=== PATIENT | female | born 1980 | race Caucasian/White ===

== ENCOUNTER 2016-12-09 12:21 | Emergency (ER) | payer MEDICAID ==
[~2016-12-09] VITALS: Ht 139.7 cm; Wt 102.0 kg
[~2016-12-09 12:21] MED LIST: CETI10CH CHEW; FLUT50SP EACH NARE; LEVE500T8 PO; LEVO150T7 PO; PROT40TA PO; TOPI1TAB31 PO
[2016-12-09] MEDS ORDERED: FISHCAP4 PO (12:28)
[2016-12-09 12:29] VITALS: BP 135/78; PULSE 103; RESP 20; TEMP 98.7; O2SAT 91
[2016-12-09 12:45] LABS: AUTOMATED NEUTROPHIL # 10.4 TH/MM3 (1.8-7.7); BASOPHIL # 0.2 TH/MM3 (0-0.2); BASOPHIL % 1.5 % (0.0-2.0); EOSINOPHIL # 0.2 TH/MM3 (0-0.4); EOSINOPHIL % 1.6 % (0.0-4.0); HEMATOCRIT 38.1 % (35.0-46.0); LYMPH % 6.9 % (9.0-44.0); LYMPHOCYTE # 0.9 TH/MM3 (1.0-4.8); MEAN CELL VOLUME 88.9 FL (80.0-100.0); MEAN CORPUSCULAR HEMOGLOBIN 29.9 PG (27.0-34.0); MEAN CORPUSCULAR HGB CONC 33.6 % (32.0-36.0); MONO % 5.4 % (0.0-8.0); NEUT % 84.6 % (16.0-70.0); PLATELET COUNT 234 TH/MM3 (150-450); RED BLOOD COUNT 4.29 MIL/MM3 (4.00-5.30); WHITE BLOOD COUNT 12.4 TH/MM3 (4.0-11.0)
[2016-12-09] MEDS ORDERED: RESP: ALBUTEROL 2.5 MG/IPRATROPIUM 0.5 MG NEB (SCH) INH ONE (12:45)
[2016-12-09 12:46] LABS: HEMO FLAGS DIFF FINAL
[2016-12-09 12:51] VITALS: O2SAT 97
--- NOTE | 2016-12-09 12:51 | PD ---
HPI Chief Complaint: Respiratory Symptoms Time Seen by Provider: 12:35 Travel History International Travel<30 days: No Contact w/Intl Traveler<30days: No Traveled to known affect area: No History of Present Illness HPI 36yo F with PMH of Down syndrome, ASD repair, sleep apnea presents to the ED with c/o few days of sob, cough and intermittent chest pain. Pt's mother states she noticed she is wheezing today. Pt has oxygen at home but only use at night because of sleep apnea and she was not able to tolerate CPAP. Pt has not use oxygen in 6 months. +Nasal congestion. Pt also with right sided headache now. Denies any fever, n/v, abdominal pain, focal weakness or numbness. PFSH Past Medical History Cardiac Catheterization: Yes (1984) Cardiovascular Problems: Yes (ASD repair ) Chest Pain: Yes Congestive Heart Failure: Yes Developmental Delay: Yes (DOWNS SYNDROME) Diminished Hearing: No Gastrointestinal Disorders: Yes (DYSPHAGIA, ABDOMINAL PAIN) GERD: Yes Genitourinary: Yes (endometriosis) Headaches: Yes Insomnia: Yes Neurologic: Yes (DOWN SYNDRONE,SEIZURES) Immunizations Current: Yes Pneumonia: Yes (PLEURISY) Seizures: Yes Sleep Apnea: Yes (O2 3L/NC AT NIGHT PRN) Thyroid Disease: Yes Tetanus Vaccination: < 5 Years Influenza Vaccination: Yes ?: Not : 0 Past Surgical History Cardiac Surgery: Yes (asd repair) Tonsillectomy: Yes Tympanostomy Tube: Yes (tympanic surgery) Other Surgery: Yes Social History Alcohol Use: No Tobacco Use: No Substance Use: No Allergies-Medications (Allergen,Severity, Reaction): Coded Allergies: Pineapple (Verified Allergy, Severe, "Stops breathing", 12/09/16) Demerol (Verified Adverse Reaction, Severe, Anxiety, 12/09/16) Reported Meds & Prescriptions Reported Meds & Active Scripts Active Ventolin Hfa 18 GM Inh (Albuterol Sulfate) 90 Mcg/Act Aer 2 Puff INH Q4H PRN Reported Fish Oil + D3 (Fish Oil-Cholecalciferol) 1,200-1,000 Mg-Unit Cap 1 Cap PO DAILY Fluticasone Nasal [place] 50 Mcg/Act Naspr 50 Mcg EACH NARE BID 50 mcg/spray Topiramate 100 Mg Tab 100 Mg PO BID Protonix (Pantoprazole Sodium) 40 Mg Tab 40 Mg PO DAILY Levothyroxine (Levothyroxine Sodium) 150 Mcg Tab 175 Mcg PO DAILY Levetiracetam 500 Mg Tab 500 Mg PO BID Cetirizine (Cetirizine HCl) 10 Mg Chew 10 Mg CHEW DAILY Review of Systems Except as stated in HPI: all other systems reviewed are Neg Physical Exam Narrative GENERAL: 36yo F in moderate distress. SKIN: Focused skin assessment warm/dry. HEAD: Atraumatic. Normocephalic. EYES: Pupils equal and round. No scleral icterus. No injection or drainage. ENT: No nasal bleeding or discharge. Mucous membranes pink and moist. NECK: Trachea midline. No JVD. CARDIOVASCULAR: Regular rate and rhythm. No murmur appreciated. RESPIRATORY: + accessory muscle use. Coarse expiratory sound in bilateral lower lungs. Mild inspiratory wheezing on right lower lung. GASTROINTESTINAL: Abdomen soft, non-tender, nondistended. Hepatic and splenic margins not palpable. MUSCULOSKELETAL: No obvious deformities. No clubbing. No cyanosis. No edema. NEUROLOGICAL: Awake and alert. No obvious cranial nerve deficits. Motor grossly within normal limits. Normal speech. PSYCHIATRIC: Appropriate mood and affect; insight and judgment normal. Data Data Last Documented VS Vital Signs Date Time Temp Pulse Resp B/P Pulse Ox O2 Delivery O2 Flow Rate FiO2 12/09/16 16:37 108 20 138/81 95 12/09/16 14:16 99.9 Nasal Cannula 2 Orders Complete Blood Count With Diff (12/09/16 12:27) Basic Metabolic Panel (Bmp) (12/09/16 12:27) Chest, Single Ap (12/09/16 ) Lactic Acid Sepsis Protocol (12/09/16 12:44) Ckmb (Isoenzyme) Profile (12/09/16 12:44) Troponin I (12/09/16 12:44) Albuterol-Ipratropium Neb (Duoneb Neb) (12/09/16 12:45) Electrocardiogram (12/09/16 ) Sodium Chloride 0.9% Flush (Ns Flush) (12/09/16 14:15) Sodium Chloride 0.9% Flush (Ns Flush) (12/09/16 21:00) Acetaminophen (Tylenol) (12/09/16 14:15) Ondansetron Inj (Zofran Inj) (12/09/16 14:15) Resp Oxygen Denilson C Titrat 1-4 L (12/09/16 ) Heparin Inj (Heparin Inj) (12/09/16 15:00) Naloxone Inj (Narcan Inj) (12/09/16 14:15) Docusate Sodium-Senna (Denise-Colace) (12/09/16 21:00) Magnesium Hydroxide Liq (Milk Of Magnesi (12/09/16 14:15) Sennosides (Senokot) (12/09/16 14:15) Bisacodyl Supp (Dulcolax Supp) (12/09/16 14:15) Lactulose Liq (Lactulose Liq) (12/09/16 14:15) Inpatient Certification (12/09/16 ) Ceftriaxone Inj (Rocephin Inj) (12/09/16 15:00) Azithromycin Inj (Zithromax Inj) (12/09/16 14:15) Ed Poc Ultrasound (12/09/16 ) Ct Pulmonary Angiogram (12/09/16 ) Bhcg Screen Qualitative (12/09/16 14:39) Albuterol-Ipratropium Neb (Duoneb Neb) (12/09/16 15:15) Iohexol 350 Inj (Omnipaque 350 Inj) (12/09/16 15:43) Labs Laboratory Tests Test 12/09/16 12/09/16 12:30 12:54 White Blood Count 12.4 TH/MM3 Red Blood Count 4.29 MIL/MM3 Hemoglobin 12.8 GM/DL Hematocrit 38.1 % Mean Corpuscular Volume 88.9 FL Mean Corpuscular Hemoglobin 29.9 PG Mean Corpuscular Hemoglobin 33.6 % Concent Red Cell Distribution Width 14.0 % Platelet Count 234 TH/MM3 Mean Platelet Volume 7.2 FL Neutrophils (%) (Auto) 84.6 % Lymphocytes (%) (Auto) 6.9 % Monocytes (%) (Auto) 5.4 % Eosinophils (%) (Auto) 1.6 % Basophils (%) (Auto) 1.5 % Neutrophils # (Auto) 10.4 TH/MM3 Lymphocytes # (Auto) 0.9 TH/MM3 Monocytes # (Auto) 0.7 TH/MM3 Eosinophils # (Auto) 0.2 TH/MM3 Basophils # (Auto) 0.2 TH/MM3 CBC Comment DIFF FINAL Differential Comment Sodium Level 137 MEQ/L Potassium Level 3.6 MEQ/L Chloride Level 105 MEQ/L Carbon Dioxide Level 23.4 MEQ/L Anion Gap 9 MEQ/L Blood Urea Nitrogen 9 MG/DL Creatinine 0.77 MG/DL Estimat Glomerular Filtration 86 ML/MIN Rate Random Glucose 118 MG/DL Calcium Level 8.3 MG/DL Lactic Acid Level 0.8 mmol/L Total Creatine Kinase 35 U/L Troponin I LESS THAN 0.02 NG/ML Beta HCG, Qualitative LESS THAN 1 MIU/ML MDM Medical Decision Making Medical Screen Exam Complete: Yes Emergency Medical Condition: Yes Interpretation(s) EKG: NSR 98bpm. LAD. TWI V2. Laboratory Tests Test 12/09/16 12/09/16 12:30 12:54 White Blood Count 12.4 TH/MM3 (4.0-11.0) Red Blood Count 4.29 MIL/MM3 (4.00-5.30) Hemoglobin 12.8 GM/DL (11.6-15.3) Hematocrit 38.1 % (35.0-46.0) Mean Corpuscular Volume 88.9 FL (80.0-100.0) Mean Corpuscular Hemoglobin 29.9 PG (27.0-34.0) Mean Corpuscular Hemoglobin 33.6 % Concent (32.0-36.0) Red Cell Distribution Width 14.0 % (11.6-17.2) Platelet Count 234 TH/MM3 (150-450) Mean Platelet Volume 7.2 FL (7.0-11.0) Neutrophils (%) (Auto) 84.6 % (16.0-70.0) Lymphocytes (%) (Auto) 6.9 % (9.0-44.0) Monocytes (%) (Auto) 5.4 % (0.0-8.0) Eosinophils (%) (Auto) 1.6 % (0.0-4.0) Basophils (%) (Auto) 1.5 % (0.0-2.0) Neutrophils # (Auto) 10.4 TH/MM3 (1.8-7.7) Lymphocytes # (Auto) 0.9 TH/MM3 (1.0-4.8) Monocytes # (Auto) 0.7 TH/MM3 (0-0.9) Eosinophils # (Auto) 0.2 TH/MM3 (0-0.4) Basophils # (Auto) 0.2 TH/MM3 (0-0.2) CBC Comment DIFF FINAL Differential Comment Sodium Level 137 MEQ/L (136-145) Potassium Level 3.6 MEQ/L (3.5-5.1) Chloride Level 105 MEQ/L (98-107) Carbon Dioxide Level 23.4 MEQ/L (21.0-32.0) Anion Gap 9 MEQ/L (5-15) Blood Urea Nitrogen 9 MG/DL (7-18) Creatinine 0.77 MG/DL (0.50-1.00) Estimat Glomerular Filtration 86 ML/MIN (>89) Rate Random Glucose 118 MG/DL (74-106) Calcium Level 8.3 MG/DL (8.5-10.1) Lactic Acid Level 0.8 mmol/L (0.4-2.0) Total Creatine Kinase 35 U/L (26-192) Troponin I LESS THAN 0.02 NG/ML (0.02-0.05) Beta HCG, Qualitative LESS THAN 1 MIU/ML (0-5) Last Impressions Chest X-Ray 12/09/16 0000 Signed Impressions: Service Date/Time: Friday, December 09, 2016 13:23 - CONCLUSION: No acute cardiopulmonary abnormality is identified. Lei Malave MD CT Angiography 12/09/16 0000 Signed Impressions: Service Date/Time: Friday, December 09, 2016 15:20 - CONCLUSION: 1. No evidence of pulmonary embolism. 2. Cardiomegaly. 3. Posterior bibasilar atelectasis. 4. Hepatosplenomegaly. 5. Degenerative changes and mild scoliosis of the thoracic spine. Alejandro Short MD Differential Diagnosis Pneumonia vs. reactive airway disease vs. bronchitis vs. pericarditis vs. PE Narrative Course 36yo F with down syndrome here with sob. Pt was hypoxic at 88% on RA and placed on 3L NC and saturating at 95-96%. Pt has oxygen at home. Labs reviewed , mild leukocytosis at 12.4. Lactic acid 0.8. Troponin negative. CXR showed no acute cardiopulmonary abnormality. Pt has no history of asthma or COPD but has very mild wheezing in right lung on exam so gave a duoneb. Pt reevaluated at bedside and states that did help so I will give another duoneb. I am concern about PE so ultrasound was used to place [address] angio. CT angio showed no evidence of PE. Posterior bibasilar atelectasis. Pt 's saturation improves when she sits up to 95-96%. Pt feels better and wants to go home. Mother has oxygen at home. Headache has resolved. Speaking in complete sentences and not in distress. Return precautions given. Procedures Procedure Narrative Ultrasound guided peripheral IV placed in right antecubital region. Diagnosis Primary Impression: Reactive airway disease Qualified Code: J45.901 - Reactive airway disease, unspecified asthma severity , with acute exacerbation Patient Instructions: General Instructions Departure Forms: Tests/Procedures Additional Instructions: Please follow up with your PMD in 1-2 days. Return to the ED if symptoms worsen. Med/Other Pt SpecificInfo: Prescription(s) given Scripts Albuterol 18 GM Inh (Ventolin Hfa 18 GM Inh)90 Mcg/Act Aer2 Puff INH Q4H PRN ( SHORTNESS OF BREATH) #1 INHALER Ref 0 Prov:Alissa Simpson DO 12/09/16 Disposition: 01 DISCHARGE HOME Condition: Stable Alissa Simpson DO December 09, 2016 12:51
[2016-12-09 12:53] LABS: POTASSIUM 3.6 MEQ/L (3.5-5.1)
[2016-12-09 12:58] LABS: BICARBONATE 23.4 MEQ/L (21.0-32.0)
--- NOTE | 2016-12-09 13:36 | RADHPO ---
EXAM DATE/TIME: 12/09/2016 13:23 [facility] COMPARISON: CHEST SINGLE AP, November 23, 2013, 8:11. INDICATIONS : Shortness of breath. MEDICAL HISTORY : SURGICAL HISTORY : ASD repair open heart 1985 ENCOUNTER: Initial ACUITY: 1 day PAIN SCORE: 0/10 LOCATION: FINDINGS: Portable AP view of the chest demonstrates a normal-sized cardiac silhouette. Lungs are underinflated with atelectasis at the right lung base. No effusion, consolidation, or pneumothorax is visualized. Bones and soft tissues demonstrate no acute finding. CONCLUSION: No acute cardiopulmonary abnormality is identified. Lei Malave MD on December 09, 2016 at 13:33 Board Certified Radiologist. This report was verified electronically.
[2016-12-09 13:43] LABS: CREATINE KINASE 35 U/L (26-192)
[2016-12-09] MEDS ORDERED: SODIUM CHLORIDE 0.9% FLUSH 10 ML FLUSH IV FLUSH PRN (14:15)
[2016-12-09] MEDS ORDERED: ACETAMINOPHEN 325 MG TAB PO PRN (14:15)
[2016-12-09] MEDS ORDERED: AZITHROMYCIN INJ 500 MG in SODIUM CHLOR 0.9% 250 ML INJ 250 ML IV SCH (14:15)
[2016-12-09] MEDS ORDERED: LACTULOSE SYRUP 20 GM/30 ML CUP PO PRN (14:15)
[2016-12-09] MEDS ORDERED: BISACODYL 10 MG SUPP RECTAL PRN (14:15)
[2016-12-09] MEDS ORDERED: ONDANSETRON HCL 4 MG/2 ML VIAL IVP PRN (14:15)
[2016-12-09] MEDS ORDERED: SENNOSIDES 8.6 MG TAB PO PRN (14:15)
[2016-12-09] MEDS ORDERED: NALOXONE HCL 0.4 MG/ML AMP IV PRN (14:15)
[2016-12-09] MEDS ORDERED: MAGNESIUM HYDROXIDE SUSP 30 ML CUP PO PRN (14:15)
[2016-12-09 14:16] VITALS: BP 124/75; PULSE 103; RESP 18; TEMP 99.9; O2SAT 93
[2016-12-09] MEDS ORDERED: cefTRIAXone INJ 1,000 MG in SODIUM CHLORIDE 0.9% INJ 100 ML IV SCH (15:00)
[2016-12-09] MEDS ORDERED: HEPARIN SODIUM - SQ 10,000 UNITS/ML VIAL SQ SCH (15:00)
[2016-12-09] MEDS ORDERED: RESP: ALBUTEROL 2.5 MG/IPRATROPIUM 0.5 MG NEB (SCH) NEB ONE (15:15)
[2016-12-09] MEDS ORDERED: IOHEXOL 350 MG/ML 10 ML VIAL (for RAD DIAG) IV ONE (15:43)
--- NOTE | 2016-12-09 15:52 | RADHPO ---
EXAM DATE/TIME: 12/09/2016 15:20 [facility] COMPARISON: No previous studies available for comparison. INDICATIONS : Cough with shortness of breath and chest pain IV CONTRAST: 70 cc Omnipaque 350 (iohexol) IV RADIATION DOSE: 21.57 CTDIvol (mGy) MEDICAL HISTORY : Congestive hearrt failure. Cardiovascular disease Downs syndrome. SURGICAL HISTORY : ASD repair. ENCOUNTER: Initial ACUITY: 3 days PAIN SCALE: 2/10 LOCATION: chest TECHNIQUE: Volumetric scanning of the chest was performed using a pulmonary embolism protocol MIP images were re constructed. Using automated exposure control and adjustment of the mA and/or kV according to patien t size, radiation dose was kept as low as reasonably achievable to obtain optimal diagnostic quality images. FINDINGS: PULMONARY ARTERIES: No filling defects are seen in the pulmonary arteries through the segmental level. LUNGS: Posterior bibasilar atelectasis is noted. There is no consolidation or pneumothorax . No concerning pulmonary nodule is visualized. PLEURAE: There is no pleural thickening or pleural effusion. MEDIASTINUM: There is good visualization of the great vessels of the middle mediastinum. No evidence of mediastin al or hilar adenopathy/mass. Cardiomegaly is noted. MUSCULOSKELETAL: Degenerative changes and mild scoliosis of the thoracic spine is noted. MISCELLANEOUS: The visualized upper abdominal organs demonstrate no acute abnormality. Hepatosplenomegaly is noted. CONCLUSION: 1. No evidence of pulmonary embolism. 2. Cardiomegaly. 3. Posterior bibasilar atelectasis. 4. Hepatosplenomegaly. 5. Degenerative changes and mild scoliosis of the thoracic spine. Alejandro Short MD on December 09, 2016 at 15:48 Board Certified Radiologist. This report was verified electronically.
[2016-12-09] MEDS ORDERED: VENTAER INH (16:27)
[2016-12-09 16:37] VITALS: BP 138/81
[2016-12-09] MEDS ORDERED: SODIUM CHLORIDE 0.9% FLUSH 10 ML FLUSH IV FLUSH SCH (21:00)
[2016-12-09] MEDS ORDERED: DOCUSATE SODIUM 50 MG/SENNA 8.6 MG TAB PO SCH (21:00)
--- NOTE | 2016-12-10 08:25 | EKG ---
Date Performed: 12/09/2016 Time Performed: 12:59:00 PTAGE: 36 years EKG: Sinus rhythm Left axis deviation Ant/septal and lateral ST-T changes are nonspecific Abnormal ECG PREVIOUS TRACING : 01/28/2013 12.54 Compared to previous tracing, heart rate has increased. DOCTOR: Ash Burks Interpretating Date/Time 12/10/2016 08:25:39
== END 2016-12-09 16:39 | disposition home or self-care (01) ==
LOC: PHED 12:21
DX: J45.909 Unspecified asthma, uncomplicated (principal); I51.7 Cardiomegaly; D72.829 Elevated white blood cell count, unspecified; R16.2 Hepatomegaly with splenomegaly, not elsewhere classified; M41.9 Scoliosis, unspecified; I50.9 Heart failure, unspecified; K21.9 Gastro-esophageal reflux disease without esophagitis; R56.9 Unspecified convulsions; Q90.9 Down syndrome, unspecified
CPT/HCPCS: 71010; 71275; 80048; 82550; 83605; 84484; 84703; 85025; 93005; 94640; 94664; 99285; Q9967

== ENCOUNTER 2016-12-12 12:12 | Inpatient (IN) | payer MEDICAID ==
[2016-12-12] VITALS (7 sets, daily range): BP systolic 115–119; BP diastolic 58–75; PULSE 96–104; RESP 16–23; TEMP 97.4–98; O2SAT 92–98
[~2016-12-12] VITALS: Ht 139.7 cm; Wt 117.0 kg
[~2016-12-12 12:12] MED LIST changes: +FISHCAP4 PO; +VENTAER INH
[2016-12-12] MEDS ORDERED: CIPR250T2 PO (12:34)
[2016-12-12] MEDS ORDERED: VANCOMYCIN INJ 1,500 MG in SODIUM CHLORID 0.9% 500 ML INJ 500 ML IV STA (12:35)
[2016-12-12] MEDS ORDERED: PIPERACIL-TAZO 4.5 GM PREMIX 100 ML IV STA (12:35)
[2016-12-12] MEDS ORDERED: TOPA25TA8 PO (12:36)
--- NOTE | 2016-12-12 12:41 | PD ---
HPI Chief Complaint: Skin Problem Time Seen by Provider: 12:28 Travel History International Travel<30 days: No Contact w/Intl Traveler<30days: No Traveled to known affect area: No History of Present Illness HPI This 36-year-old patient has been having fever. She was here on Friday. At that time a source for fever was not found. The next day she went to her primary care doctor and was found to have an infection of the abdominal wall. She was started on ciprofloxacin. She has been taking the ciprofloxacin since then but it is continuing to have fever and redness of the abdomen. She has a history of Down syndrome and has had heart surgery. She had gone to her primary care physician this morning who felt she needed to be admitted and referred her here. Mother says that the patient had a temp of 1012 and was given Tylenol at the doctor's office. PFSH Past Medical History Cardiac Catheterization: Yes (1984) Cardiovascular Problems: Yes (ASD repair ) Chest Pain: Yes Congestive Heart Failure: Yes Developmental Delay: Yes (DOWNS SYNDROME) Diminished Hearing: No Gastrointestinal Disorders: Yes (DYSPHAGIA, ABDOMINAL PAIN) GERD: Yes Genitourinary: Yes (endometriosis) Headaches: Yes Insomnia: Yes Neurologic: Yes (DOWN SYNDRONE,SEIZURES) Immunizations Current: Yes Pneumonia: Yes (PLEURISY) Seizures: Yes Sleep Apnea: Yes (O2 3L/NC AT NIGHT PRN) Thyroid Disease: Yes Tetanus Vaccination: > 5 Years Influenza Vaccination: Yes ?: Not LMP: 11/11/16 : 0 Past Surgical History Cardiac Surgery: Yes (asd repair) Tonsillectomy: Yes Tympanostomy Tube: Yes (tympanic surgery) Other Surgery: Yes Social History Alcohol Use: No Tobacco Use: No Substance Use: No Allergies-Medications (Allergen,Severity, Reaction): Coded Allergies: Pineapple (Verified Allergy, Severe, "Stops breathing", 12/12/16) Demerol (Verified Adverse Reaction, Severe, Anxiety, 12/12/16) Reported Meds & Prescriptions Reported Meds & Active Scripts Active Ventolin Hfa 18 GM Inh (Albuterol Sulfate) 90 Mcg/Act Aer 2 Puff INH Q4H PRN Reported Topamax (Topiramate) 25 Mg Tab 100 Mg PO BID Ciprofloxacin (Ciprofloxacin HCl) 250 Mg Tab 250 Mg PO BID Fish Oil + D3 (Fish Oil-Cholecalciferol) 1,200-1,000 Mg-Unit Cap 1 Cap PO DAILY Fluticasone Nasal [place] 50 Mcg/Act Naspr 50 Mcg EACH NARE BID 50 mcg/spray Protonix (Pantoprazole Sodium) 40 Mg Tab 40 Mg PO DAILY Levothyroxine (Levothyroxine Sodium) 150 Mcg Tab 150 Mcg PO DAILY Levetiracetam 500 Mg Tab 500 Mg PO BID Cetirizine (Cetirizine HCl) 10 Mg Chew 10 Mg CHEW DAILY Review of Systems General / Constitutional: Positive: Fever, Chills Physical Exam Narrative GENERAL: Patient with Down syndrome SKIN: Focused skin assessment warm/dry. There is erythema of the skin of the lower abdomen. There is a site that is draining some purulent material. Bowel sounds are active HEAD: Atraumatic. Normocephalic. EYES: Pupils equal and round. No scleral icterus. No injection or drainage. ENT: No nasal bleeding or discharge. Mucous membranes pink and moist. NECK: Trachea midline. No JVD. CARDIOVASCULAR: Regular rate and rhythm. No murmur appreciated. RESPIRATORY: No accessory muscle use. Clear to auscultation. Breath sounds equal bilaterally. GASTROINTESTINAL: Abdomen soft, non-tender, nondistended. Hepatic and splenic margins not palpable. MUSCULOSKELETAL: No obvious deformities. No clubbing. No cyanosis. No edema. NEUROLOGICAL: Awake and alert. No obvious cranial nerve deficits. Motor grossly within normal limits. Normal speech. PSYCHIATRIC: Appropriate mood and affect; insight and judgment normal. Data Data Last Documented VS Vital Signs Date Time Temp Pulse Resp B/P Pulse Ox O2 Delivery O2 Flow Rate FiO2 12/12/16 13:01 99 16 95 Room Air 12/12/16 12:19 98.0 119/75 Orders Complete Blood Count With Diff (12/12/16 12:35) Comprehensive Metabolic Panel (12/12/16 12:35) Lactic Acid Sepsis Protocol (12/12/16 12:35) Urinalysis - C+S If Indicated (12/12/16 12:35) Blood Culture (12/12/16 12:35) Wound Culture And Gram Stain (12/12/16 12:35) Blood Glucose (12/12/16 12:35) Ecg Monitoring (12/12/16 12:35) Iv Access Insert/Monitor (12/12/16 12:35) Oximetry (12/12/16 12:35) Piperacil-Tazo 4.5 Gm Premix (Zosyn 4.5 (12/12/16 12:35) Vancomycin Inj (Vancomycin Inj) (12/12/16 12:35) Creatine Kinase (Cpk) (12/12/16 14:00) Potassium Chloride (Kcl) (12/12/16 14:15) Magnesium (Mg) (12/12/16 15:00) Potassium Chloride (Kcl) (12/12/16 15:30) Vancomycin Consult Pharmacy (Vancomycin (12/12/16 15:15) Piperacil-Tazo 3.375 Gm Premix (Zosyn 3. (12/12/16 20:00) ^ Other Nursing Orders (12/12/16 15:09) Admit Order (Ed Use Only) (12/12/16 15:10) ^ Seizure Precautions (12/12/16 15:13) ^ Other Nursing Orders (12/12/16 15:13) Labs Laboratory Tests Test 12/12/16 12:40 White Blood Count 22.5 TH/MM3 Red Blood Count 3.83 MIL/MM3 Hemoglobin 11.4 GM/DL Hematocrit 34.1 % Mean Corpuscular Volume 89.1 FL Mean Corpuscular Hemoglobin 29.8 PG Mean Corpuscular Hemoglobin 33.4 % Concent Red Cell Distribution Width 13.9 % Platelet Count 237 TH/MM3 Mean Platelet Volume 6.7 FL Neutrophils (%) (Auto) 89.5 % Lymphocytes (%) (Auto) 4.6 % Monocytes (%) (Auto) 5.3 % Eosinophils (%) (Auto) 0.5 % Basophils (%) (Auto) 0.1 % Neutrophils # (Auto) 20.2 TH/MM3 Lymphocytes # (Auto) 1.0 TH/MM3 Monocytes # (Auto) 1.2 TH/MM3 Eosinophils # (Auto) 0.1 TH/MM3 Basophils # (Auto) 0.0 TH/MM3 CBC Comment DIFF FINAL Differential Comment Sodium Level 137 MEQ/L Potassium Level 3.0 MEQ/L Chloride Level 101 MEQ/L Carbon Dioxide Level 27.3 MEQ/L Anion Gap 9 MEQ/L Blood Urea Nitrogen 9 MG/DL Creatinine 0.89 MG/DL Estimat Glomerular Filtration 73 ML/MIN Rate Random Glucose 133 MG/DL Lactic Acid Level 1.6 mmol/L Calcium Level 8.3 MG/DL Magnesium Level 2.0 MG/DL Total Bilirubin 0.4 MG/DL Aspartate Amino Transf 14 U/L (AST/SGOT) Alanine Aminotransferase 29 U/L (ALT/SGPT) Alkaline Phosphatase 136 U/L Total Creatine Kinase 27 U/L Total Protein 7.0 GM/DL Albumin 2.5 GM/DL MDM Medical Decision Making Medical Screen Exam Complete: Yes Emergency Medical Condition: Yes Medical Record Reviewed: Yes Differential Diagnosis Differential includes abdominal wall cellulitis Narrative Course Patient has been on ciprofloxacin without response. She will be admitted for IV antibiotics Diagnosis Primary Impression: Abdominal wall cellulitis Admitting Information Admitting Physician Requests: Admit Chad Montague MD Dec 12, 2016 12:41
[2016-12-12 12:59] LABS: AUTOMATED NEUTROPHIL # 20.2 TH/MM3 (1.8-7.7); BASOPHIL % 0.1 % (0.0-2.0); EOSINOPHIL # 0.1 TH/MM3 (0-0.4); EOSINOPHIL % 0.5 % (0.0-4.0); HEMATOCRIT 34.1 % (35.0-46.0); LYMPH % 4.6 % (9.0-44.0); MEAN CELL VOLUME 89.1 FL (80.0-100.0); MEAN CORPUSCULAR HEMOGLOBIN 29.8 PG (27.0-34.0); MEAN CORPUSCULAR HGB CONC 33.4 % (32.0-36.0); MONO % 5.3 % (0.0-8.0); NEUT % 89.5 % (16.0-70.0); PLATELET COUNT 237 TH/MM3 (150-450); RED BLOOD COUNT 3.83 MIL/MM3 (4.00-5.30); RED CELL DISTRIBUTION WIDTH 13.9 % (11.6-17.2); WHITE BLOOD COUNT 22.5 TH/MM3 (4.0-11.0)
[2016-12-12 13:20] LABS: HEMO FLAGS DIFF FINAL
[2016-12-12 14:07] LABS: ANION GAP 9 MEQ/L (5-15); GLOMERULAR FILTRATION RATE 73 ML/MIN (>89)
[2016-12-12 14:08] LABS: ALKALINE PHOSPHATASE 136 U/L (45-117); ALT (GPT) 29 U/L (10-53); AST (GOT) 14 U/L (15-37); BICARBONATE 27.3 MEQ/L (21.0-32.0); BLOOD UREA NITROGEN 9 MG/DL (7-18); CHLORIDE 101 MEQ/L (98-107); SODIUM (NA) 137 MEQ/L (136-145); TOTAL BILIRUBIN ADULT 0.4 MG/DL (0.2-1.0)
[2016-12-12] MEDS ORDERED: POTASSIUM CHLORIDE 20 MEQ CONTROLLED RELEASE TAB PO ONE ×2 (14:15→15:30)
[2016-12-12] MEDS ORDERED: NALOXONE HCL 0.4 MG/ML AMP IV PRN (15:15)
[2016-12-12] MEDS ORDERED: ONDANSETRON HCL 4 MG/2 ML VIAL IVP PRN (15:15)
[2016-12-12] MEDS ORDERED: MAGNESIUM HYDROXIDE SUSP 30 ML CUP PO PRN (15:15)
[2016-12-12] MEDS ORDERED: Vancomycin Consult Pharmacy 1 EA OTHER SCH (15:15)
[2016-12-12] MEDS ORDERED: MORPHINE SULFATE 4 MG/ML INJ IV PRN (15:15)
[2016-12-12] MEDS ORDERED: SODIUM CHLORIDE 0.9% FLUSH 10 ML FLUSH IV FLUSH PRN (15:15)
[2016-12-12] MEDS ORDERED: ACETAMINOPHEN 325 MG TAB PO PRN (15:15)
[2016-12-12 16:05] LABS: BLOOD, URINE SMALL (NEG); GLUCOSE,URINE NEG (NEG); KETONE, URINE NEG (NEG); NITRITE,URINE NEG (NEG)
[2016-12-12] MEDS ORDERED: NS + KCL 20 MEQ INJ 1,000 ML IV SCH (16:15)
[2016-12-12] MEDS ORDERED: MENTHOL LOZENGE BUCCAL PRN (16:15)
[2016-12-12] MEDS ORDERED: PHENOL 1.4% SOLN 180 ML BTL MT PRN (16:15)
--- NOTE | 2016-12-12 16:19 | HHI.HP ---
HPI Service [facility] Primary Care Physician Fermín Siegel MD Admission Diagnosis ABDOMINAL WALL CELLULITIS Diagnoses: Chief Complaint: Fever Travel History International Travel<30 Days: No Contact w/Intl Traveler <30 Da: No Traveled to Known Affected Are: No Sepsis Criteria SIRS Criteria (2 or more): Heart rate over 90, RR > 20 or PaCO2 < 32, WBC > 08573, < 4000 or > 10% bands Sepsis Criteria (SIRS+source): Infect source susp/known Criteria Outcome: Meets sepsis criteria History of Present Illness This is a 36-year-old female with a history of trisomy, ASD repair, GERD, seizure disorder, hypothyroidism and sleep apnea. She was brought in to the emergency room by her mother because of fever. She was evaluated here in the emergency department last Friday because of fever and was discharged home after undergoing CTA and chest x-ray. Following day she was seen by her PCP and was started on ciprofloxacin for abdominal wall cellulitis. She had a follow-up today and was reported to the emergency room because of persistent fever. Mother also noted purulent discharge from the lower abdomen starting yesterday. Denies history of MRSA. Patient complains of being tired and intermittent headache associated with fever. She also has throat pain. At this time, patient has no complaints today she is cool Review of Systems Except as stated in HPI: all other systems reviewed are Neg Past Family Social History Past Medical History As previously mentioned Past Surgical History As previously mentioned. Tonsillectomy, tympanic surgery Reported Medications Topamax (Topiramate) 25 Mg Tab 100 Mg PO BID Ciprofloxacin (Ciprofloxacin HCl) 250 Mg Tab 250 Mg PO BID Fish Oil + D3 (Fish Oil-Cholecalciferol) 1,200-1,000 Mg-Unit Cap 1 Cap PO DAILY Fluticasone Nasal [place] 50 Mcg/Act Naspr 50 Mcg EACH NARE BID 50 mcg/spray Protonix (Pantoprazole Sodium) 40 Mg Tab 40 Mg PO DAILY Levothyroxine (Levothyroxine Sodium) 150 Mcg Tab 150 Mcg PO DAILY Levetiracetam 500 Mg Tab 500 Mg PO BID Cetirizine (Cetirizine HCl) 10 Mg Chew 10 Mg CHEW DAILY Allergies: Coded Allergies: Pineapple (Verified Allergy, Severe, "Stops breathing", 12/12/16) Demerol (Verified Adverse Reaction, Severe, Anxiety, 12/12/16) Family History ID Social History Does not smoke or drink Physical Exam Vital Signs Vital Signs Date Time Temp Pulse Resp B/P Pulse Ox O2 Delivery O2 Flow Rate FiO2 12/12/16 15:56 101 18 118/58 98 Room Air 12/12/16 13:01 99 16 95 Room Air 12/12/16 12:25 22 12/12/16 12:19 98.0 98 16 119/75 94 Physical Exam GENERAL: This is an obese, well-developed patient, in no apparent distress. She has features of trisomy and she looks dehydrated SKIN: Skin is flushed. There is erythema and induration of the lower abdomen and an a spot in the central area is draining purulent discharge. Tinea cruris noted HEAD: Atraumatic. Normocephalic. No temporal or scalp tenderness. EYES: Pupils equal round and reactive. Extraocular motions intact. No scleral icterus. No injection or drainage. ENT: Nose without bleeding, purulent drainage or septal hematoma. Throat without erythema, tonsillar hypertrophy or exudate. Uvula midline. Airway patent. NECK: Trachea midline. No JVD or lymphadenopathy. Supple, nontender, no meningeal signs. CARDIOVASCULAR: Regular rate and rhythm without murmurs, gallops, or rubs. RESPIRATORY: Clear to auscultation. Breath sounds equal bilaterally. No wheezes , rales, or rhonchi. GASTROINTESTINAL: Abdomen soft, non-tender, nondistended. No guarding. MUSCULOSKELETAL: Extremities without clubbing, cyanosis, or edema. No joint tenderness, effusion, or edema noted. No calf tenderness. Negative Homans sign bilaterally. NEUROLOGICAL: Awake and alert. Cranial nerves II through XII intact. Motor and sensory grossly within normal limits. Five out of 5 muscle strength in all muscle groups. Normal speech. Laboratory Laboratory Tests Test 12/12/16 12:40 White Blood Count 22.5 Red Blood Count 3.83 Hemoglobin 11.4 Hematocrit 34.1 Mean Corpuscular Volume 89.1 Mean Corpuscular Hemoglobin 29.8 Mean Corpuscular Hemoglobin 33.4 Concent Red Cell Distribution Width 13.9 Platelet Count 237 Mean Platelet Volume 6.7 Neutrophils (%) (Auto) 89.5 Lymphocytes (%) (Auto) 4.6 Monocytes (%) (Auto) 5.3 Eosinophils (%) (Auto) 0.5 Basophils (%) (Auto) 0.1 Neutrophils # (Auto) 20.2 Lymphocytes # (Auto) 1.0 Monocytes # (Auto) 1.2 Eosinophils # (Auto) 0.1 Basophils # (Auto) 0.0 CBC Comment DIFF FINAL Differential Comment Sodium Level 137 Potassium Level 3.0 Chloride Level 101 Carbon Dioxide Level 27.3 Anion Gap 9 Blood Urea Nitrogen 9 Creatinine 0.89 Estimat Glomerular Filtration 73 Rate Random Glucose 133 Lactic Acid Level 1.6 Calcium Level 8.3 Magnesium Level 2.0 Total Bilirubin 0.4 Aspartate Amino Transf 14 (AST/SGOT) Alanine Aminotransferase 29 (ALT/SGPT) Alkaline Phosphatase 136 Total Creatine Kinase 27 Total Protein 7.0 Albumin 2.5 Date/Time Procedure Status Source Growth 12/12/16 12:50 Gram Stain Received Wound Abdomen Pending 12/12/16 12:50 Wound Culture Received Wound Abdomen Pending 12/12/16 12:50 Aerobic Blood Culture Received Blood Peripheral Pending 12/12/16 12:50 Anaerobic Blood Culture Received Blood Peripheral Pending Result Diagram: 12/12/16 1240 12/12/16 1240 Imaging Chest x-ray image interpreted by me without acute cardiopulmonary disease. Image was taken last Friday Assessment and Plan Problem List: (1) Abdominal wall cellulitis ICD Code: L03.311 Status: Acute Assessment and Plan This is a 36-year-old female who presented with fever and abdominal wall cellulitis despite ciprofloxacin usage for 4 days Sepsis with tachycardia, tachypnea and leukocytosis. Follow-up cultures Abdominal wall cellulitis suspect abscess with failed outpatient therapy. Start IV Zosyn and vancomycin and follow-up cultures. Obtain CT of the abdomen and pelvis. Pain management with Lortab and IV morphine Hypokalemia. We'll give a total of 60 mg by mouth and repeat BMP and magnesium in the morning Hyperglycemia. Obtain fasting glucose in the morning Chronic medical conditions of trisomy, ASD repair, GERD, seizure disorder, hypothyroidism and sleep apnea. Continue outpatient medications as appropriate. Seizure precautions. DVT prophylaxis with SCD and early ablation Code Status Full Discussed Condition With Patient, family and ER staff Physician Certification 2 Midnight Certification Type: Admission for Inpatient Services Order for Inpatient Services The services are ordered in accordance with Medicare regulations or non- Medicare payer requirements, as applicable. In the case of services not specified as inpatient-only, they are appropriately provided as inpatient services in accordance with the 2-midnight benchmark. Estimated LOS (days): 2 days is the estimated time the patient will need to remain in the hospital, assuming treatment plan goals are met and no additional complications. Post-Hospital Plan: Moises Coon MD Dec 12, 2016 16:19
[2016-12-12 16:24] LABS: URINE COLOR YELLOW (YELLW/STRAW)
[2016-12-12 16:25] LABS: WBC, URINE 0-2 /hpf (0-5)
[2016-12-12 16:27] LABS: RBC, URINE 0-3 /hpf (0-3)
[2016-12-12 16:28] LABS: SQUAMOUS EPITHELIAL CELL URINE 0-5 /hpf (0-5)
[2016-12-12 16:29] LABS: COMMENT (UR) CULT NOT INDICATED; CULTURE IF INDICATED CULT NOT INDICATED
[2016-12-12] MEDS ORDERED: HYDR-3533 PO (18:38)
--- NOTE | 2016-12-12 18:38 | HHI.DCPOC ---
Discharge Care Plan Diagnosis: (1) Abdominal wall cellulitis Your Health Problems Are: Difficulty with ADL Exercise Tolerance Goals to Promote Your Health * To prevent worsening of your condition and complications * To maintain your health at the optimal level Directions to Meet Your Goals Take your medications as prescribed Follow your dietary instruction Follow activity as directed Keep your appointments as scheduled Take your immunizations and boosters as scheduled If your symptoms worsen call your PCP, if no PCP go to Urgent Care Center or Emergency Room Smoking is Dangerous to Your Health. Avoid second hand smoke Call the 24-hour hour crisis hotline for domestic abuse at Moises Del Rio MD Dec 12, 2016 18:38
--- NOTE | 2016-12-12 18:40 | HHI.FF ---
Face to Face Verification Diagnosis: (1) Abdominal wall cellulitis Physical Therapy Order: Evaluate and Treat, Improve ambulation, Strength and gait training Home Health Nursing Order: Medical education Signs/symptoms of disease process Medication education-adverse effect Wound care and dressing changes Nursing assessment with vital signs I have seen patient Mary Dee on 12/12/16. My clinical findings support the need for the requested home health care services because: Ltd mobility - disease progression I certify that my clinical findings support that this patient is homebound because: Need for psychosocial assistance Moises Del Rio MD Dec 12, 2016 18:40
[2016-12-12] MEDS ORDERED: DIATRIZOATE MEGLUM/DIATRIZOATE SOD 9 ML CUP PO ONE (20:15)
[2016-12-12] MEDS: PIPERACIL-TAZO 3.375 GM PREMIX 50 ML IV SCH (20:43)
[2016-12-12] MEDS: levETIRAcetam 500 MG TAB PO SCH (20:44)
[2016-12-12] MEDS: NYSTATIN 100,000 U/GM PWD 15 GM BTL TOPICAL SCH (20:44)
[2016-12-12] MEDS: FLUTICASONE PROPIONATE 50 MCG/ACT 16 GM NASAL SPRAY EACH NARE SCH (20:44)
[2016-12-12] MEDS: SODIUM CHLORIDE 0.9% FLUSH 10 ML FLUSH IV FLUSH SCH (20:44)
[2016-12-12] MEDS: DOCUSATE SODIUM 50 MG/SENNA 8.6 MG TAB PO SCH (20:44)
[2016-12-12] MEDS: TOPIRAMATE 100 MG TAB PO SCH (20:44)
[2016-12-12] MEDS: ACETAMINOPHEN/HYDROcodone 325 MG/5 MG TAB PO PRN (20:45)
[2016-12-12] MEDS ORDERED: IOHEXOL 350 MG/ML 10 ML VIAL (for RAD DIAG) IV ONE (22:48)
--- NOTE | 2016-12-12 22:55 | RADHPO ---
EXAM DATE/TIME: 12/12/2016 22:26 [facility] COMPARISON: No previous studies available for comparison. INDICATIONS : Fever and purulent dishcarge from low abdomen IV CONTRAST: 95 cc Omnipaque 350 (iohexol) IV ORAL CONTRAST: Partial prescribed oral contrast ingested. RADIATION DOSE: 22.11 CTDIvol (mGy) MEDICAL HISTORY : Seizures. Congestive heart failure. Mitral valve prolapse. Downs syndrome. SURGICAL HISTORY : None. ENCOUNTER: Initial ACUITY: 4 - 6 days PAIN SCALE: 5/10 LOCATION: Low abdomen TECHNIQUE: Volumetric scanning of the abdomen and pelvis was performed. Using automated exposure control and ad justment of the mA and/or kV according to patient size, radiation dose was kept as low as reasonably achievable to obtain optimal diagnostic quality images. FINDINGS: LOWER LUNGS: The visualized lower lungs are clear. LIVER: Homogeneous density without lesion. There is no dilation of the biliary tree. No calcified gallston es. SPLEEN: Multiple 1 cm low density lesions are seen scattered throughout the spleen. The spleen is not enlarge d. The splenic vein is patent. PANCREAS: Within normal limits. KIDNEYS: Normal in size and shape. There is no mass, stone or hydronephrosis. ADRENAL GLANDS: Within normal limits. VASCULAR: There is no aortic aneurysm. BOWEL/MESENTERY: The stomach, small bowel, and colon demonstrate no acute abnormality. There is no free intraperitone al air or fluid. ABDOMINAL WALL: There is skin thickening and stranding of the subcutaneous fat involving the anterior abdominal wall within the lower abdomen. No abscess or fluid collection. RETROPERITONEUM: There is no lymphadenopathy. BLADDER: No wall thickening or mass. REPRODUCTIVE: Within normal limits. INGUINAL: There is no lymphadenopathy or hernia. MUSCULOSKELETAL: Within normal limits for patient age. CONCLUSION: 1. Inflammatory changes involving the low anterior abdominal wall suggesting cellulitis. No abscess. 2. Multiple low density lesions involving the spleen. These are poorly characterized with CT. Ultraso und would likely be of little value in characterizing these lesions given the patient's body habitus. A followup outpatient MRI is suggested to further evaluate these lesions. Jamie Delarosa Jr., MD on December 12, 2016 at 22:49 Board Certified Radiologist. This report was verified electronically.
[2016-12-13] VITALS (8 sets, daily range): BP systolic 107–146; BP diastolic 67–86; PULSE 88–100; RESP 18–24; TEMP 96.3–99.4; O2SAT 87–97
[2016-12-13] MEDS: PIPERACIL-TAZO 3.375 GM PREMIX 50 ML IV SCH ×4 (02:36→22:00)
[2016-12-13] MEDS: LEVOTHYROXINE SODIUM 150 MCG TAB PO SCH (06:12)
[2016-12-13] MEDS: NYSTATIN 100,000 U/GM PWD 15 GM BTL TOPICAL SCH ×3 (06:12→22:03)
[2016-12-13 06:17] LABS: AUTOMATED NEUTROPHIL # 14.7 TH/MM3 (1.8-7.7); BASOPHIL % 0.2 % (0.0-2.0); EOSINOPHIL # 0.1 TH/MM3 (0-0.4); EOSINOPHIL % 0.7 % (0.0-4.0); HEMATOCRIT 31.8 % (35.0-46.0); LYMPH % 6.5 % (9.0-44.0); LYMPHOCYTE # 1.1 TH/MM3 (1.0-4.8); MEAN CORPUSCULAR HEMOGLOBIN 29.6 PG (27.0-34.0); MEAN CORPUSCULAR HGB CONC 33.6 % (32.0-36.0); MONO % 4.3 % (0.0-8.0); NEUT % 88.3 % (16.0-70.0); PLATELET COUNT 238 TH/MM3 (150-450); RED BLOOD COUNT 3.62 MIL/MM3 (4.00-5.30); RED CELL DISTRIBUTION WIDTH 14.1 % (11.6-17.2); WHITE BLOOD COUNT 16.6 TH/MM3 (4.0-11.0)
[2016-12-13 06:26] LABS: POTASSIUM 3.5 MEQ/L (3.5-5.1)
[2016-12-13 06:29] LABS: HEMO FLAGS DIFF FINAL
[2016-12-13 06:31] LABS: BICARBONATE 27.5 MEQ/L (21.0-32.0)
[2016-12-13] MEDS ORDERED: POTASSIUM CHLORIDE 20 MEQ CONTROLLED RELEASE TAB PO ONE (09:00)
[2016-12-13] MEDS: DOCUSATE SODIUM 50 MG/SENNA 8.6 MG TAB PO SCH ×2 (09:35→21:59)
[2016-12-13] MEDS: TOPIRAMATE 100 MG TAB PO SCH ×2 (09:35→21:59)
[2016-12-13] MEDS: PANTOPRAZOLE SOD 40 MG DELAYED RELEASE TAB PO SCH (09:35)
[2016-12-13] MEDS: levETIRAcetam 500 MG TAB PO SCH ×2 (09:35→21:58)
[2016-12-13] MEDS: FLUTICASONE PROPIONATE 50 MCG/ACT 16 GM NASAL SPRAY EACH NARE SCH ×2 (09:52→22:03)
[2016-12-13] MEDS ORDERED: PNEUMOCOCCAL POLYVALENT INJ 25 MCG/0.5 ML SYR IM ONE (10:00)
[2016-12-13] MEDS: SODIUM CHLORIDE 0.9% FLUSH 10 ML FLUSH IV FLUSH SCH ×2 (10:34→21:00)
--- NOTE | 2016-12-13 11:39 | HHI.PR ---
Subjective Remarks Follow-up cellulitis. Patient states she is cool no complaints. Seen with mother and discussed with RN, patient became tachycardic while she was ambulating. There was audible wheezes and patient is coughing. Objective Vitals Vital Signs Date Time Temp Pulse Resp B/P Pulse Ox O2 Delivery O2 Flow Rate FiO2 12/13/16 08:00 96.4 94 22 146/79 96 12/13/16 04:00 87 Nasal Cannula 2.00 12/13/16 04:00 96.3 100 24 113/75 87 12/13/16 00:00 98.3 95 23 107/70 91 12/12/16 20:28 93 21 12/12/16 20:21 97 12/12/16 20:00 97.4 96 23 115/62 92 12/12/16 18:05 104 18 96 Room Air 12/12/16 15:56 101 18 118/58 98 Room Air 12/12/16 13:01 99 16 95 Room Air 12/12/16 12:25 22 12/12/16 12:19 98.0 98 16 119/75 94 I/O 12/12/16 12/12/16 12/12/16 12/13/16 12/13/16 12/13/16 07:00 15:00 23:00 07:00 15:00 23:00 Intake Total 600 ml 245 ml 618 ml Output Total 600 ml Balance 600 ml -355 ml 618 ml Intake IV Total 600 ml 245 ml 618 ml Output Urine Total 600 ml Result Diagram: 12/13/16 0450 12/13/16 0450 Imaging Last Impressions Abdomen/Pelvis CT 12/12/16 0000 Signed Impressions: Service Date/Time: December 22:26 - CONCLUSION: 1. Inflammatory changes involving the low anterior abdominal wall suggesting cellulitis. No abscess. 2. Multiple low density lesions involving the spleen. These are poorly characterized with CT. Ultrasound would likely be of little value in characterizing these lesions given the patient's body habitus. A followup outpatient MRI is suggested to further evaluate these lesions. Jamie Delarosa Jr., MD Objective Remarks GENERAL: This is an obese, well-developed patient, in no apparent distress. She has features of trisomy SKIN: Lower abdomen covered with dry dressing HEAD: Atraumatic. Normocephalic. No temporal or scalp tenderness. EYES: Pupils equal round and reactive. Extraocular motions intact. No scleral icterus. No injection or drainage. ENT: Nose without bleeding, purulent drainage or septal hematoma. Throat without erythema, tonsillar hypertrophy or exudate. Uvula midline. Airway patent. NECK: Trachea midline. No JVD or lymphadenopathy. Supple, nontender, no meningeal signs. CARDIOVASCULAR: Regular rate and rhythm without murmurs, gallops, or rubs. RESPIRATORY: Clear to auscultation. Breath sounds equal bilaterally. No wheezes , rales, or rhonchi. GASTROINTESTINAL: Abdomen soft, non-tender, nondistended. No guarding. MUSCULOSKELETAL: Extremities without clubbing, cyanosis, or edema. No joint tenderness, effusion, or edema noted. No calf tenderness. Negative Homans sign bilaterally. NEUROLOGICAL: Awake and alert. Cranial nerves II through XII intact. Motor and sensory grossly within normal limits. Five out of 5 muscle strength in all muscle groups. Normal speech. Procedures Non- A/P Problem List: (1) Abdominal wall cellulitis ICD Code: L03.311 Status: Acute Assessment and Plan This is a 36-year-old female who presented with fever and abdominal wall cellulitis despite ciprofloxacin for 4 days Sepsis with tachycardia, tachypnea and leukocytosis. Improving. Follow-up cultures negative to date Abdominal wall cellulitis with failed outpatient therapy. No abscess on CT. Stable continue IV Zosyn and vancomycin and follow-up cultures. Pain management with Lortab and IV morphine Hypokalemia. Improved Hyperglycemia. Check A1c Wheezing. Obtain chest x-ray and start nebulization. Oxygen as needed. Chronic medical conditions of trisomy, ASD repair, GERD, seizure disorder, hypothyroidism and sleep apnea. Continue outpatient medications as appropriate. Seizure precautions. DVT prophylaxis with SCD and early ambulation Discharge Planning Not ready for discharge Moises Del Rio MD Dec 13, 2016 11:38
[2016-12-13] MEDS: VANCOMYCIN 1,500 MG/NS 500 ML IV SCH ×2 (14:24)
--- NOTE | 2016-12-13 15:00 | RADHPO ---
EXAM DATE/TIME: 12/13/2016 13:22 [facility] COMPARISON: CHEST SINGLE AP, December 09, 2016, 13:23. CT PE 12/09/16 INDICATIONS : Short of breath, fever. MEDICAL HISTORY : Chronic obstructive pulmonary disease. Congestive heart failure. downs syndrome, seizures SURGICAL HISTORY : asd repair ENCOUNTER: Subsequent ACUITY: 4 - 6 days PAIN SCORE: 0/10 LOCATION: Bilateral chest FINDINGS: No significant focal pleural-parenchymal opacities given patient's body habitus and apparent rotary t horacolumbar scoliosis with kyphosis at the thoracolumbar junction. Cardiac silhouette is mildly enla rged but likely exaggerated by thoracolumbar deformity. Remainder of the exam is unchanged. CONCLUSION: No acute abnormality or significant interval change. Juan Booker MD on December 13, 2016 at 14:51 Board Certified Radiologist. This report was verified electronically.
[2016-12-13] MEDS: guaiFENesin E.R. 600 MG TAB PO SCH (21:59)
[2016-12-13] MEDS: BENZONATATE 100 MG CAP PO PRN (22:16)
[2016-12-13] MEDS: ACETAMINOPHEN 325 MG TAB PO PRN (22:18)
[2016-12-13] MEDS: RESP: ALBUTEROL 0.63 MG/3 ML NEB (PRN) NEB (22:28)
[2016-12-13 22:34] LABS: HEMOGLOBIN A1a 1.2 %; HEMOGLOBIN A1b 0.8 %; HEMOGLOBIN F 1.2 %; HEMOGLOBIN P3 5.2 %
[2016-12-14] VITALS (8 sets, daily range): BP systolic 133–140; BP diastolic 71–77; PULSE 73–89; RESP 18–21; TEMP 97.3–100.2; O2SAT 92–98
[2016-12-14] MEDS ORDERED: MELATONIN 5 MG TAB PO PRN (01:00)
[2016-12-14] MEDS: PIPERACIL-TAZO 3.375 GM PREMIX 50 ML IV SCH (04:17)
[2016-12-14] MEDS: LEVOTHYROXINE SODIUM 150 MCG TAB PO SCH (06:11)
[2016-12-14] MEDS: NYSTATIN 100,000 U/GM PWD 15 GM BTL TOPICAL SCH ×3 (06:11→21:43)
--- NOTE | 2016-12-14 06:41 | RADHPO ---
EXAM DATE/TIME: 12/14/2016 06:24 [facility] COMPARISON: CHEST SINGLE AP, December 09, 2016, 13:23. CHEST PA & LAT, December 13, 2016, 13:22. INDICATIONS : Fever. MEDICAL HISTORY : Chronic obstructive pulmonary disease. Congestive heart failure. Downs Syndrome, Seizures SURGICAL HISTORY : ASD repair. ENCOUNTER: Subsequent ACUITY: 1 week PAIN SCORE: Non-responsive. LOCATION: Bilateral chest FINDINGS: There is slight pulmonary edema not clearly present previously. Heart and mediastinum are unremarkabl e for technique. The rest of the examination has not significantly changed. CONCLUSION: Haziness to the lungs part of it is technical, however mild pulmonary edema is suspected. Eriberto Arthur MD on December 14, 2016 at 6:38 Board Certified Radiologist. This report was verified electronically.
[2016-12-14] MEDS: RESP: ALBUTEROL 0.63 MG/3 ML NEB (PRN) NEB (07:18)
[2016-12-14 09:25] LABS: AUTOMATED NEUTROPHIL # 9.8 TH/MM3 (1.8-7.7); BASOPHIL # 0.1 TH/MM3 (0-0.2); BASOPHIL % 0.7 % (0.0-2.0); EOSINOPHIL # 0.1 TH/MM3 (0-0.4); EOSINOPHIL % 0.7 % (0.0-4.0); HEMATOCRIT 31.7 % (35.0-46.0); LYMPH % 7.9 % (9.0-44.0); LYMPHOCYTE # 0.9 TH/MM3 (1.0-4.8); MEAN CELL VOLUME 87.6 FL (80.0-100.0); MEAN CORPUSCULAR HEMOGLOBIN 28.7 PG (27.0-34.0); MEAN CORPUSCULAR HGB CONC 32.8 % (32.0-36.0); MONO % 5.2 % (0.0-8.0); NEUT % 85.5 % (16.0-70.0); PLATELET COUNT 254 TH/MM3 (150-450); RED BLOOD COUNT 3.62 MIL/MM3 (4.00-5.30); RED CELL DISTRIBUTION WIDTH 14.1 % (11.6-17.2); WHITE BLOOD COUNT 11.5 TH/MM3 (4.0-11.0)
--- NOTE | 2016-12-14 09:26 | HHI.PR ---
Subjective Remarks Follow-up cellulitis. Patient states she is cool. Discussed with mother was states her breathing is improved specially after nebulization. She denies shortness of breath. Discussed with RN Objective Vitals Vital Signs Date Time Temp Pulse Resp B/P Pulse Ox O2 Delivery O2 Flow Rate FiO2 12/14/16 08:00 98.0 83 21 137/77 96 12/14/16 07:19 95 Nasal Cannula 2.00 12/14/16 04:46 12/14/16 00:51 100.2 89 20 133/77 98 12/13/16 22:28 93 Nasal Cannula 2.00 12/13/16 21:11 99.4 95 18 136/86 97 12/13/16 20:00 Nasal Cannula 2.00 21 12/13/16 16:00 98.0 88 22 118/67 95 12/13/16 12:00 97.8 93 21 121/79 93 I/O 12/13/16 12/13/16 12/13/16 12/14/16 12/14/16 12/14/16 07:00 15:00 23:00 07:00 15:00 23:00 Intake Total 618 ml 360 ml Balance 618 ml 360 ml Intake Oral 360 ml IV Total 618 ml # Voids 3 2 # Bowel Movements 0 Result Diagram: 12/13/16 0450 12/13/16 0450 Imaging Last Impressions Chest X-Ray 12/14/16 0000 Signed Impressions: Service Date/Time: Wednesday, December 14, 2016 06:24 - CONCLUSION: Haziness to the lungs part of it is technical, however mild pulmonary edema is suspected. Eriberto Arthur MD Abdomen/Pelvis CT 12/12/16 0000 Signed Impressions: Service Date/Time: December 22:26 - CONCLUSION: 1. Inflammatory changes involving the low anterior abdominal wall suggesting cellulitis. No abscess. 2. Multiple low density lesions involving the spleen. These are poorly characterized with CT. Ultrasound would likely be of little value in characterizing these lesions given the patient's body habitus. A followup outpatient MRI is suggested to further evaluate these lesions. Jamie Delarosa Jr., MD Objective Remarks GENERAL: This is an obese, well-developed patient, in no apparent distress. She has features of trisomy SKIN: Lower abdomen with decreasing injury patient and receding erythema HEAD: Atraumatic. Normocephalic. No temporal or scalp tenderness. EYES: Pupils equal round and reactive. Extraocular motions intact. No scleral icterus. No injection or drainage. ENT: Nose without bleeding, purulent drainage or septal hematoma. Throat without erythema, tonsillar hypertrophy or exudate. Uvula midline. Airway patent. NECK: Trachea midline. No JVD or lymphadenopathy. Supple, nontender, no meningeal signs. CARDIOVASCULAR: Regular rate and rhythm without murmurs, gallops, or rubs. RESPIRATORY: Clear to auscultation. Breath sounds equal bilaterally. No wheezes , rales, or rhonchi. GASTROINTESTINAL: Abdomen soft, non-tender, nondistended. No guarding. MUSCULOSKELETAL: Extremities without clubbing, cyanosis, or edema. No joint tenderness, effusion, or edema noted. No calf tenderness. Negative Homans sign bilaterally. NEUROLOGICAL: Awake and alert. Cranial nerves II through XII intact. Motor and sensory grossly within normal limits. Five out of 5 muscle strength in all muscle groups. Normal speech. Procedures Non- A/P Problem List: (1) Abdominal wall cellulitis ICD Code: L03.311 Status: Acute Assessment and Plan This is a 36-year-old female who presented with fever and abdominal wall cellulitis despite ciprofloxacin for 4 days Sepsis with tachycardia, tachypnea and leukocytosis. Improving. Follow-up cultures negative to date Abdominal wall cellulitis with failed outpatient therapy. No abscess on CT. culture with MRSA Stable continue IV vancomycin and discontinue Zosyn. Pain management with Lortab and IV morphine Hypokalemia. Improved Hyperglycemia. A1c 5.7 Wheezing RAD suspect. Improving. Chest x-ray with possible pulmonary edema. Check BNP. Patient not on IV fluids with no signs of fluid overload. Continue nebulization. Oxygen as needed. Chronic medical conditions of trisomy, ASD repair, GERD, seizure disorder, hypothyroidism and sleep apnea. Continue outpatient medications as appropriate. Seizure precautions. DVT prophylaxis with SCD and early ambulation Discharge Planning Not ready for discharge Moises Del Rio MD Dec 14, 2016 09:26
[2016-12-14 09:36] LABS: HEMO FLAGS DIFF FINAL
[2016-12-14] MEDS: ACETAMINOPHEN 325 MG TAB PO PRN (09:49)
[2016-12-14] MEDS: ALBUTEROL SULFATE 90 MCG/ACT HFA 8 GM INHALER INH PRN ×2 (09:50→13:36)
[2016-12-14] MEDS: TOPIRAMATE 100 MG TAB PO SCH ×2 (09:52→21:37)
[2016-12-14] MEDS: DOCUSATE SODIUM 50 MG/SENNA 8.6 MG TAB PO SCH ×2 (09:53→21:37)
[2016-12-14] MEDS: levETIRAcetam 500 MG TAB PO SCH ×2 (09:53→21:37)
[2016-12-14] MEDS: PANTOPRAZOLE SOD 40 MG DELAYED RELEASE TAB PO SCH (09:53)
[2016-12-14] MEDS: guaiFENesin E.R. 600 MG TAB PO SCH ×2 (09:53→21:37)
[2016-12-14] MEDS: FLUTICASONE PROPIONATE 50 MCG/ACT 16 GM NASAL SPRAY EACH NARE SCH ×2 (09:53→21:40)
[2016-12-14] MEDS: SODIUM CHLORIDE 0.9% FLUSH 10 ML FLUSH IV FLUSH SCH ×2 (09:54→21:39)
[2016-12-14] MEDS: BENZONATATE 100 MG CAP PO PRN ×2 (09:55→18:24)
[2016-12-14] MEDS: guaiFENesin/DEXTROMETHORPHAN 200 MG/20 MG/10 ML CUP PO PRN ×3 (09:55→18:24)
[2016-12-14 10:20] LABS: POTASSIUM 3.7 MEQ/L (3.5-5.1)
[2016-12-14 10:21] LABS: BICARBONATE 28.2 MEQ/L (21.0-32.0)
[2016-12-14 10:22] LABS: MAGNESIUM 2.5 MG/DL (1.5-2.5)
[2016-12-14] MEDS: RESP: ALBUTEROL 0.63 MG/3 ML NEB (SCH) NEB ×3 (11:09→20:07)
[2016-12-14] MEDS: VANCOMYCIN 1,500 MG/NS 500 ML IV SCH ×2 (13:35)
[2016-12-14] MEDS: ACETAMINOPHEN/HYDROcodone 325 MG/7.5 MG TAB PO PRN (21:38)
[2016-12-15] VITALS (9 sets, daily range): BP systolic 110–136; BP diastolic 66–80; PULSE 81–94; RESP 20; TEMP 97–98.7; O2SAT 92–97
[2016-12-15] MEDS: LEVOTHYROXINE SODIUM 150 MCG TAB PO SCH (06:13)
[2016-12-15] MEDS: BENZONATATE 100 MG CAP PO PRN (06:13)
[2016-12-15] MEDS: ACETAMINOPHEN/HYDROcodone 325 MG/7.5 MG TAB PO PRN (06:15)
[2016-12-15] MEDS: NYSTATIN 100,000 U/GM PWD 15 GM BTL TOPICAL SCH ×3 (06:16→21:46)
[2016-12-15] MEDS: RESP: ALBUTEROL 0.63 MG/3 ML NEB (SCH) NEB ×4 (06:32→19:32)
[2016-12-15] MEDS ORDERED: RESP: ALBUTEROL 0.63 MG/3 ML NEB (PRN) NEB (08:00)
[2016-12-15] MEDS: DOCUSATE SODIUM 50 MG/SENNA 8.6 MG TAB PO SCH ×2 (09:00→21:00)
[2016-12-15] MEDS: SODIUM CHLORIDE 0.9% FLUSH 10 ML FLUSH IV FLUSH SCH ×2 (09:14→21:46)
[2016-12-15] MEDS: FLUTICASONE PROPIONATE 50 MCG/ACT 16 GM NASAL SPRAY EACH NARE SCH ×2 (09:15→21:46)
[2016-12-15] MEDS: ALBUTEROL SULFATE 90 MCG/ACT HFA 8 GM INHALER INH PRN (09:15)
[2016-12-15] MEDS: levETIRAcetam 500 MG TAB PO SCH ×2 (09:18→21:45)
[2016-12-15] MEDS: guaiFENesin E.R. 600 MG TAB PO SCH ×2 (09:18→21:45)
[2016-12-15] MEDS: TOPIRAMATE 100 MG TAB PO SCH ×2 (09:18→21:49)
[2016-12-15] MEDS: PANTOPRAZOLE SOD 40 MG DELAYED RELEASE TAB PO SCH (09:18)
[2016-12-15] MEDS: guaiFENesin/DEXTROMETHORPHAN 200 MG/20 MG/10 ML CUP PO PRN (09:21)
--- NOTE | 2016-12-15 09:29 | HHI.PR ---
Subjective Remarks Follow-up cellulitis. Again patient states she is cool discussed with mother who noted dyspnea on exertion with audible wheezing history of asthma. Discussed with RN improving in duration of the lower abdomen but continues to have significant drainage Objective Vitals Vital Signs Date Time Temp Pulse Resp B/P Pulse Ox O2 Delivery O2 Flow Rate FiO2 12/15/16 08:30 93 Nasal Cannula 2.00 12/15/16 05:06 98.7 94 20 136/75 97 12/15/16 00:55 12/14/16 21:52 99.3 73 18 133/71 98 12/14/16 20:10 95 Nasal Cannula 2.00 12/14/16 20:00 Nasal Cannula 12/14/16 16:00 98.1 85 18 134/74 92 12/14/16 12:00 97.3 88 20 140/73 97 12/14/16 09:54 96 2.00 I/O 12/14/16 12/14/16 12/14/16 12/15/16 12/15/16 12/15/16 07:00 15:00 23:00 07:00 15:00 23:00 Intake Total 510 ml Balance 510 ml IV Total 510 ml # Voids 2 2 3 # Bowel Movements 0 Result Diagram: 12/14/16 0915 12/14/16 0915 Imaging Last Impressions Chest X-Ray 12/14/16 0000 Signed Impressions: Service Date/Time: Wednesday, December 14, 2016 06:24 - CONCLUSION: Haziness to the lungs part of it is technical, however mild pulmonary edema is suspected. Eriberto Arthur MD Abdomen/Pelvis CT 12/12/16 0000 Signed Impressions: Service Date/Time: December 22:26 - CONCLUSION: 1. Inflammatory changes involving the low anterior abdominal wall suggesting cellulitis. No abscess. 2. Multiple low density lesions involving the spleen. These are poorly characterized with CT. Ultrasound would likely be of little value in characterizing these lesions given the patient's body habitus. A followup outpatient MRI is suggested to further evaluate these lesions. Jamie Delarosa Jr., MD Objective Remarks GENERAL: This is an obese, well-developed patient, in no apparent distress. She has features of trisomy SKIN: Lower abdomen still with significant cellulitis but decreasing induration and receding erythema HEAD: Atraumatic. Normocephalic. No temporal or scalp tenderness. EYES: Pupils equal round and reactive. Extraocular motions intact. No scleral icterus. No injection or drainage. ENT: Nose without bleeding, purulent drainage or septal hematoma. NECK: Trachea midline. No JVD or lymphadenopathy. Supple CARDIOVASCULAR: Regular rate and rhythm without murmurs, gallops, or rubs. RESPIRATORY: Clear to auscultation. Breath sounds equal bilaterally. No wheezes , rales, or rhonchi. GASTROINTESTINAL: Abdomen soft, non-tender, nondistended. No guarding. MUSCULOSKELETAL: Extremities without clubbing, cyanosis, or edema. No joint tenderness, effusion, or edema noted. No calf tenderness. Negative Homans sign bilaterally. NEUROLOGICAL: Awake and alert. Cranial nerves II through XII intact. Motor and sensory grossly within normal limits. Five out of 5 muscle strength in all muscle groups. Normal speech. Procedures None A/P Problem List: (1) Abdominal wall cellulitis ICD Code: L03.311 Status: Acute Assessment and Plan This is a 36-year-old female who presented with fever and abdominal wall cellulitis despite ciprofloxacin for 4 days Sepsis with tachycardia, tachypnea and leukocytosis. Improving. Follow-up blood cultures negative to date Abdominal wall cellulitis with failed outpatient therapy. No abscess on CT. Wound culture with MRSA. Slowly improving continue IV vancomycin. Pain management with Lortab and IV morphine Hypokalemia. Improved Hyperglycemia. A1c 5.7 Wheezing RAD suspect history of asthma. Still wheezing start steroids. Chest x -ray with possible pulmonary edema. Normal BNP doubt pulmonary edema. Patient not on IV fluids with no signs of fluid overload. Continue nebulization. Oxygen as needed. Chronic medical conditions of trisomy, ASD repair, GERD, seizure disorder, hypothyroidism and sleep apnea. Continue outpatient medications as appropriate. Seizure precautions. DVT prophylaxis with SCD and early ambulation Discharge Planning Not ready for discharge Moises Del Rio MD Dec 15, 2016 09:29
[2016-12-15] MEDS: predniSONE 20 MG TAB PO SCH (10:37)
[2016-12-15] MEDS ORDERED: PHARMACY ORDERED LAB ONE (13:45)
[2016-12-15] MEDS: VANCOMYCIN 1,500 MG/NS 500 ML IV SCH ×2 (15:15)
[2016-12-16] VITALS (8 sets, daily range): BP systolic 116–126; BP diastolic 62–80; PULSE 75–89; RESP 16–22; TEMP 96.9–98.7; O2SAT 92–99
[2016-12-16] MEDS ORDERED: VANCOMYCIN INJ 1,250 MG in SODIUM CHLOR 0.9% 250 ML INJ 250 ML IV SCH (03:00)
[2016-12-16] MEDS: ACETAMINOPHEN 325 MG TAB PO PRN (03:51)
[2016-12-16] MEDS: guaiFENesin/DEXTROMETHORPHAN 200 MG/20 MG/10 ML CUP PO PRN (03:51)
[2016-12-16 06:04] LABS: POTASSIUM 3.9 MEQ/L (3.5-5.1)
[2016-12-16 06:06] LABS: AUTOMATED NEUTROPHIL # 8.3 TH/MM3 (1.8-7.7); BASOPHIL % 0.4 % (0.0-2.0); EOSINOPHIL % 0.2 % (0.0-4.0); LYMPH % 13.2 % (9.0-44.0); LYMPHOCYTE # 1.4 TH/MM3 (1.0-4.8); MEAN CELL VOLUME 88.8 FL (80.0-100.0); MEAN CORPUSCULAR HEMOGLOBIN 29.1 PG (27.0-34.0); MEAN CORPUSCULAR HGB CONC 32.8 % (32.0-36.0); MONO % 5.9 % (0.0-8.0); NEUT % 80.3 % (16.0-70.0); PLATELET COUNT 270 TH/MM3 (150-450); RED BLOOD COUNT 3.49 MIL/MM3 (4.00-5.30); RED CELL DISTRIBUTION WIDTH 14.1 % (11.6-17.2); WHITE BLOOD COUNT 10.3 TH/MM3 (4.0-11.0)
[2016-12-16 06:11] LABS: MAGNESIUM 2.7 MG/DL (1.5-2.5)
[2016-12-16] MEDS: LEVOTHYROXINE SODIUM 150 MCG TAB PO SCH (06:17)
[2016-12-16] MEDS: NYSTATIN 100,000 U/GM PWD 15 GM BTL TOPICAL SCH ×3 (06:18→22:41)
[2016-12-16 06:32] LABS: HEMO FLAGS DIFF FINAL
[2016-12-16] MEDS: RESP: ALBUTEROL 0.63 MG/3 ML NEB (SCH) NEB ×4 (07:39→19:14)
[2016-12-16] MEDS: DOCUSATE SODIUM 50 MG/SENNA 8.6 MG TAB PO SCH ×2 (09:00→21:00)
[2016-12-16] MEDS ORDERED: OXYGEN NAS.CANULA (09:10)
[2016-12-16] MEDS: TOPIRAMATE 100 MG TAB PO SCH ×2 (10:11→22:40)
[2016-12-16] MEDS: PANTOPRAZOLE SOD 40 MG DELAYED RELEASE TAB PO SCH (10:11)
[2016-12-16] MEDS: guaiFENesin E.R. 600 MG TAB PO SCH ×2 (10:11→22:40)
[2016-12-16] MEDS: predniSONE 20 MG TAB PO SCH (10:11)
[2016-12-16] MEDS: levETIRAcetam 500 MG TAB PO SCH ×2 (10:11→22:40)
[2016-12-16] MEDS: SODIUM CHLORIDE 0.9% FLUSH 10 ML FLUSH IV FLUSH SCH ×2 (10:12→22:41)
[2016-12-16] MEDS: FLUTICASONE PROPIONATE 50 MCG/ACT 16 GM NASAL SPRAY EACH NARE SCH ×2 (10:12→22:41)
--- NOTE | 2016-12-16 11:25 | HHI.PR ---
Subjective Remarks Follow-up MRSA cellulitis. Patient has no new complaints. States she is cool. Discussed with mother states wheezing is better but limited ambulation secondary to isolation. She was made aware of possible discharge tomorrow. Discussed with RN and case management Objective Vitals Vital Signs Date Time Temp Pulse Resp B/P Pulse Ox O2 Delivery O2 Flow Rate FiO2 12/16/16 08:00 85 12/16/16 08:00 Nasal Cannula 2.00 12/16/16 08:00 96.9 83 22 116/66 94 12/16/16 07:42 95 Nasal Cannula 2.00 12/16/16 04:51 20 12/16/16 04:00 98.1 79 16 120/76 96 12/16/16 01:27 98.7 89 18 126/80 95 12/15/16 21:15 98.3 81 20 123/78 94 12/15/16 21:15 Nasal Cannula 2.00 12/15/16 20:00 85 12/15/16 19:32 95 Nasal Cannula 2.00 12/15/16 16:00 97.2 84 20 110/80 92 12/15/16 12:00 97.0 84 20 117/67 92 I/O 12/15/16 12/15/16 12/15/16 12/16/16 12/16/16 12/16/16 07:00 15:00 23:00 07:00 15:00 23:00 Intake Total 900 ml 250 ml Balance 900 ml 250 ml Intake Oral 900 ml IV Total 250 ml # Voids 3 5 4 # Bowel Movements 0 0 0 Result Diagram: 12/16/16 0440 12/16/16 0440 Imaging Last Impressions Chest X-Ray 12/14/16 0000 Signed Impressions: Service Date/Time: Wednesday, December 14, 2016 06:24 - CONCLUSION: Haziness to the lungs part of it is technical, however mild pulmonary edema is suspected. Eriberto Arthur MD Abdomen/Pelvis CT 12/12/16 0000 Signed Impressions: Service Date/Time: December 22:26 - CONCLUSION: 1. Inflammatory changes involving the low anterior abdominal wall suggesting cellulitis. No abscess. 2. Multiple low density lesions involving the spleen. These are poorly characterized with CT. Ultrasound would likely be of little value in characterizing these lesions given the patient's body habitus. A followup outpatient MRI is suggested to further evaluate these lesions. Jamie Delarosa Jr., MD Objective Remarks GENERAL: This is an obese, well-developed patient, in no apparent distress. She has features of trisomy. On nasal cannula SKIN: Lower abdomen improving decreasing induration and receding erythema HEAD: Atraumatic. Normocephalic. No temporal or scalp tenderness. EYES: Pupils equal round and reactive. Extraocular motions intact. No scleral icterus. No injection or drainage. ENT: Nose without bleeding, purulent drainage or septal hematoma. NECK: Trachea midline. No JVD or lymphadenopathy. Supple CARDIOVASCULAR: Regular rate and rhythm without murmurs, gallops, or rubs. RESPIRATORY: Clear to auscultation. Breath sounds equal bilaterally. No wheezes , rales, or rhonchi. GASTROINTESTINAL: Abdomen soft, non-tender, nondistended. No guarding. MUSCULOSKELETAL: Extremities without clubbing, cyanosis, or edema. No joint tenderness, effusion, or edema noted. No calf tenderness. Negative Homans sign bilaterally. NEUROLOGICAL: Awake and alert. Cranial nerves II through XII intact. Motor and sensory grossly within normal limits. Five out of 5 muscle strength in all muscle groups. Normal speech. Procedures None A/P Problem List: (1) Abdominal wall cellulitis ICD Code: L03.311 Status: Acute Assessment and Plan This is a 36-year-old female who presented with fever and abdominal wall cellulitis despite ciprofloxacin for 4 days Sepsis with tachycardia, tachypnea and leukocytosis. Resolved. Follow-up blood cultures negative to date Abdominal wall cellulitis with failed outpatient therapy. No abscess on CT. Wound culture with MRSA. Improving switch IV vancomycin to Bactrim total of 14 days. Pain management with Lortab and IV morphine Hypokalemia. Improved Hyperglycemia. A1c 5.7 Wheezing RAD suspect history of asthma. Improving continue steroids. Chest x- ray with possible pulmonary edema. Normal BNP doubt pulmonary edema. Patient not on IV fluids with no signs of fluid overload. Continue nebulization. Oxygen as needed. Chronic medical conditions of trisomy, ASD repair, GERD, seizure disorder, hypothyroidism and sleep apnea. Continue outpatient medications as appropriate. Seizure precautions. DVT prophylaxis with SCD and early ambulation Discharge Planning Possible discharge in the morning. Patient has oxygen at home as needed Moises Del Rio MD Dec 16, 2016 11:25
[2016-12-16] MEDS ORDERED: HYDR-3580 PO (11:30)
[2016-12-16] MEDS ORDERED: PRED20 PO (11:30)
[2016-12-16] MEDS ORDERED: BENZ100 PO (11:30)
[2016-12-16] MEDS ORDERED: SULF1TAB23 PO (11:30)
[2016-12-16] MEDS ORDERED: GUAI1TAB18 PO (11:30)
[2016-12-16] MEDS: SULFAMETHOXAZOLE-TRIMETHOPRIM DS 800-160 MG TAB PO SCH (22:40)
[2016-12-16] MEDS: ACETAMINOPHEN/HYDROcodone 325 MG/5 MG TAB PO PRN (22:40)
[2016-12-17] VITALS: BP 142/75; PULSE 89; RESP 20; TEMP 98.8; O2SAT 94
[2016-12-17] MEDS ORDERED: PHARMACY ORDERED LAB ONE (02:45)
[2016-12-17] MEDS: LEVOTHYROXINE SODIUM 150 MCG TAB PO SCH (05:56)
[2016-12-17] MEDS: NYSTATIN 100,000 U/GM PWD 15 GM BTL TOPICAL SCH (05:56)
[2016-12-17 08:00] VITALS: BP 128/63; PULSE 81; RESP 21; TEMP 97.6; O2SAT 96
[2016-12-17] MEDS: RESP: ALBUTEROL 0.63 MG/3 ML NEB (SCH) NEB (08:21)
[2016-12-17 08:24] VITALS: O2SAT 93
[2016-12-17] MEDS: DOCUSATE SODIUM 50 MG/SENNA 8.6 MG TAB PO SCH (09:00)
[2016-12-17] MEDS: ALBUTEROL SULFATE 90 MCG/ACT HFA 8 GM INHALER INH PRN (09:01)
[2016-12-17] MEDS: SODIUM CHLORIDE 0.9% FLUSH 10 ML FLUSH IV FLUSH SCH (09:03)
[2016-12-17] MEDS: FLUTICASONE PROPIONATE 50 MCG/ACT 16 GM NASAL SPRAY EACH NARE SCH (09:03)
[2016-12-17] MEDS: predniSONE 20 MG TAB PO SCH (09:03)
[2016-12-17] MEDS: SULFAMETHOXAZOLE-TRIMETHOPRIM DS 800-160 MG TAB PO SCH (09:03)
[2016-12-17] MEDS: levETIRAcetam 500 MG TAB PO SCH (09:04)
[2016-12-17] MEDS: PANTOPRAZOLE SOD 40 MG DELAYED RELEASE TAB PO SCH (09:04)
[2016-12-17] MEDS: guaiFENesin E.R. 600 MG TAB PO SCH (09:04)
[2016-12-17] MEDS: TOPIRAMATE 100 MG TAB PO SCH (09:04)
[2016-12-17] MEDS: guaiFENesin/DEXTROMETHORPHAN 200 MG/20 MG/10 ML CUP PO PRN (09:05)
[2016-12-17] MEDS ORDERED: NYST10007 TOPICAL (09:34)
[2016-12-17] MEDS ORDERED: MUPI2%T TOPICAL (09:34)
--- NOTE | 2016-12-17 09:36 | HHI.DS ---
Discharge Summary Admission Date Dec 12, 2016 at 15:14 Discharge Date: Dec 17, 2016 Admitting Diagnosis ABDOMINAL WALL CELLULITIS (1) Abdominal wall cellulitis ICD Code: L03.311 Diagnosis: Principal Procedures None Brief History - From Admission This is a 36-year-old female with a history of trisomy, ASD repair, GERD, seizure disorder, hypothyroidism and sleep apnea. She was brought in to the emergency room by her mother because of fever. She was evaluated here in the emergency department last Friday because of fever and was discharged home after undergoing CTA and chest x-ray. Following day she was seen by her PCP and was started on ciprofloxacin for abdominal wall cellulitis. She had a follow-up today and was reported to the emergency room because of persistent fever. Mother also noted purulent discharge from the lower abdomen starting yesterday. Denies history of MRSA. Patient complains of being tired and intermittent headache associated with fever. She also has throat pain. At this time, patient has no complaints today she is cool CBC/BMP: 12/16/16 0440 12/16/16 0440 Significant Findings Laboratory Tests Test 12/15/16 12/16/16 13:30 04:40 Vancomycin Level Trough 4.6 MCG/ML (5.0-10.0) Red Blood Count 3.49 MIL/MM3 (4.00-5.30) Hemoglobin 10.2 GM/DL (11.6-15.3) Hematocrit 31.0 % (35.0-46.0) Neutrophils (%) (Auto) 80.3 % (16.0-70.0) Neutrophils # (Auto) 8.3 TH/MM3 (1.8-7.7) Calcium Level 8.3 MG/DL (8.5-10.1) Magnesium Level 2.7 MG/DL (1.5-2.5) Imaging Last Impressions Chest X-Ray 12/14/16 0000 Signed Impressions: Service Date/Time: Wednesday, December 14, 2016 06:24 - CONCLUSION: Haziness to the lungs part of it is technical, however mild pulmonary edema is suspected. Eriberto Arthur MD Abdomen/Pelvis CT 12/12/16 0000 Signed Impressions: Service Date/Time: December 22:26 - CONCLUSION: 1. Inflammatory changes involving the low anterior abdominal wall suggesting cellulitis. No abscess. 2. Multiple low density lesions involving the spleen. These are poorly characterized with CT. Ultrasound would likely be of little value in characterizing these lesions given the patient's body habitus. A followup outpatient MRI is suggested to further evaluate these lesions. Jamie Delarosa Jr., MD PE at Discharge GENERAL: This is an obese, well-developed patient, in no apparent distress. She has features of trisomy. On nasal cannula SKIN: Lower abdomen improving decreasing induration and receding erythema HEAD: Atraumatic. Normocephalic. No temporal or scalp tenderness. EYES: Pupils equal round and reactive. Extraocular motions intact. No scleral icterus. No injection or drainage. ENT: Nose without bleeding, purulent drainage or septal hematoma. NECK: Trachea midline. No JVD or lymphadenopathy. Supple CARDIOVASCULAR: Regular rate and rhythm without murmurs, gallops, or rubs. RESPIRATORY: Clear to auscultation. Breath sounds equal bilaterally. No wheezes , rales, or rhonchi. GASTROINTESTINAL: Abdomen soft, non-tender, nondistended. No guarding. MUSCULOSKELETAL: Extremities without clubbing, cyanosis, or edema. No joint tenderness, effusion, or edema noted. No calf tenderness. Negative Homans sign bilaterally. NEUROLOGICAL: Awake and alert. Cranial nerves II through XII intact. Motor and sensory grossly within normal limits. Five out of 5 muscle strength in all muscle groups. Normal speech. Hospital Course This is a 36-year-old female who presented with fever and abdominal wall cellulitis despite ciprofloxacin for 4 days Sepsis with tachycardia, tachypnea and leukocytosis. Resolved. Follow-up blood cultures negative to date Abdominal wall cellulitis with failed outpatient therapy. No abscess on CT. Wound culture with MRSA. Improving switched IV vancomycin to Bactrim total of 14 days. Bactroban cream with wd care. Pain management with Lortab and IV morphine Hypokalemia. Improved Hyperglycemia. A1c 5.7 Wheezing RAD suspect history of asthma. Improving continue steroids. Chest x- ray with possible pulmonary edema. Normal BNP doubt pulmonary edema. Patient not on IV fluids with no signs of fluid overload. Continue nebulization. Oxygen as needed. Chronic medical conditions of trisomy, ASD repair, GERD, seizure disorder, hypothyroidism and sleep apnea. Continue outpatient medications as appropriate. Seizure precautions. DVT prophylaxis with SCD and early ambulation Unable to arrange for home health care PT and visiting nurse. We'll request for outpatient physical therapy. Mother will provide wound care. Pt Condition on Discharge: Stable Discharge Disposition: Discharge Home Discharge Time: > 30 minutes Discharge Instructions DIET: Follow Instructions for: As Tolerated, No Restrictions Activities you can perform: Regular-No Restrictions Activities to Avoid: Driving Follow up Referrals: PCP Follow-up - 1 Week New Orders: BASIC METABOLIC PROF - 1 Week New Medications: Guaifenesin (Mucinex) 1,200 Mg Tab.er.12h 600 MG PO BID Breathing Treatment #20 MG Oxygen (O2) (Oxygen (O2)) Inha 2 LITER ISABELLA.CANULA CONTINUOUS Oxygen Concentrator Portable Gaseous 2 L/min via Nasal Canula Continuous For 99 months Prevent Hypoxemia #1 CYLINDER Benzonatate (Tessalon Perles) 100 Mg Cap 200 MG PO Q8HR PRN COUGH #30 CAP Hydrocodone-Acetaminophen (Hydrocodone-Acetaminophen) 7.5-325 mg Tab 1 TAB PO Q6HR PRN PAIN SCALE 6 TO 10 #28 TAB Mupirocin Topical (Bactroban Topical) 22 Gm Cream 1 APPLIC TOPICAL Q12HR Infection #1 TUBE Nystatin Topical (Nystop Topical) 100,000 Unit/Gm Powd 1 APPLIC TOPICAL Q8HR Infection #42 UNIT Prednisone (Prednisone) 20 Mg Tab 20 MG PO DAILY Control Inflammation #3 TAB Sulfamethoxazole-Trimethoprim (Sulfamethoxazole-Trimethoprim) 800-160 Mg Tab 1 TAB PO Q12HR Infection #18 TAB Continued Medications: Albuterol 18 GM Inh (Ventolin Hfa 18 GM Inh) 90 Mcg/Act Aer 2 PUFF INH Q4H PRN SHORTNESS OF BREATH #1 Ref 0 INHALER Cetirizine (Cetirizine) 10 Mg Chew 10 MG CHEW DAILY Allergies Ref 0 TAB Fish Oil-Cholecalciferol (Fish Oil + D3) 1,200-1,000 Mg-Unit Cap 1 CAP PO DAILY Nutritional Supplement #30 Ref 0 CAP Fluticasone Nasal [place] (Fluticasone Nasal [place]) 50 Mcg/Act Naspr 50 MCG EACH NARE BID 50 mcg/spray Allergy Management #1 Ref 0 BOTTLE Levetiracetam (Levetiracetam) 500 Mg Tab 500 MG PO BID Control Seizures #60 Ref 0 TAB Levothyroxine (Levothyroxine) 150 Mcg Tab 150 MCG PO DAILY Thyroid #30 Ref 0 TAB Pantoprazole (Protonix) 40 Mg Tab 40 MG PO DAILY Reflux #30 Ref 0 TAB Topiramate (Topamax) 25 Mg Tab 100 MG PO BID Control Seizures #60 Ref 0 TAB Additional Information NI spent 35 minutes [id number] with the patient or on the dutton discussing the patient's disposition, prognosis, and plan of care with patient's caregivers. Over half the time spent was devoted to counseling the patient regarding placement in coordinating care with caregivers and case management. Moises Del Rio MD Dec 17, 2016 09:36
[2016-12-17] MEDS ORDERED: MUPIROCIN 2% CREAM 15 GM TOPICAL SCH (09:45)
== END 2016-12-17 11:46 | disposition home or self-care (01) | DRG 872 ==
LOC: PHED 12:12 → PHEDA 15:14 → PH3A 18:47
PROVIDERS: ADMIT Internal Medicine; ATTEND Internal Medicine
DX: A41.9 Sepsis, unspecified organism (principal); I50.9 Heart failure, unspecified; L03.311 Cellulitis of abdominal wall; Z68.44 Body mass index [BMI] 60.0-69.9, adult; Q90.9 Down syndrome, unspecified; E87.6 Hypokalemia; R73.9 Hyperglycemia, unspecified; K21.9 Gastro-esophageal reflux disease without esophagitis; G47.30 Sleep apnea, unspecified; G40.909 Epilepsy, unspecified, not intractable, without status epilepticus; E03.9 Hypothyroidism, unspecified; R13.10 Dysphagia, unspecified; G47.00 Insomnia, unspecified; E66.9 Obesity, unspecified; J45.909 Unspecified asthma, uncomplicated; B95.62 Methicillin resistant Staphylococcus aureus infection as the cause of diseases classified elsewhere; Z23 Encounter for immunization; Z88.5 Allergy status to narcotic agent
CPT/HCPCS: 71010; 71020; 74177; 80048; 80053; 80202; 81001; 82550; 83036; 83605; 83735; 83880; 84703; 85025; 86403; 87040; 87070; 87147; 87186; 87205; 90732; 94620; 94640; 94664; 96365; 96366; 96367; J2543; J3370; J3480; J7040; J7050; J7512; J7613; Q9963; Q9967

== ENCOUNTER → 2017-01-24 | Outpatient (CLI) | payer MEDICAID ==
[~2017-01-24] MED LIST changes: +BENZ100 PO; +CIPR250T2 PO; +GUAI1TAB18 PO; +HYDR-3580 PO; +MUPI2%T TOPICAL; +NYST10007 TOPICAL; +OXYGEN NAS.CANULA; +PRED20 PO; +SULF1TAB23 PO; +TOPA25TA8 PO; -TOPI1TAB31 PO
[2017-01-24 09:35] LABS: BLOOD GAS BASE EXCESS -1.5 mmol/L (-2-2); BLOOD GAS CARBOXYHEMOGLOBIN 1.5 % (0-4); BLOOD GAS HCO3 24 mmol/L (22-26); BLOOD GAS METHEMOGLOBIN 1.1 % (0-2); BLOOD GAS O2 HGB SATURATION 90 % (90-100); BLOOD GAS OXYGEN CONTENT 15.8 Vol % (12.0-20.0); BLOOD GAS PCO2 46 mmHg (38-42); BLOOD GAS PO2 63 mmHg (61-120); BLOOD GAS TOTAL HGB 12.5 G/DL (12.0-16.0); CRITICAL VALUE NO; DRAW SITE RT RADIAL; FIO2 21 %; NUMBER OF ARTERIAL PUNCTURES 1; STAT NO; TEMP CORR TO 98.6; ULNAR PULSE PRESENT
--- NOTE | 2017-01-24 11:17 | RADRPT ---
EXAM DATE/TIME: 01/24/2017 10:22 [place] COMPARISON: CHEST SINGLE AP, December 14, 2016, 6:24. INDICATIONS : Patient has been short of breath for four weeks. MEDICAL HISTORY : Seizures. Congestive heart failure. Mitral valve prolapse. Downs syndrome. Asthma. Restrictive airway disease. SURGICAL HISTORY : ASD repair. ENCOUNTER: Initial ACUITY: 1 day PAIN SCORE: 0/10 LOCATION: Bilateral chest FINDINGS: The heart is at the upper limits of normal in size. There is diffuse interstitial prominence but leas t a portion of this is due to overlying breast tissue. No definite focal or sacral pneumonia is seen. No pleural effusion is evident. CONCLUSION: 1. The heart appears mildly enlarged. The exam would suggest some mild congestive failure though I do not see a significant pleural effusion. It is possible the appearance of the lungs is due to overlyi ng breast tissue. Dominick Bhatt MD on January 24, 2017 at 10:42 Board Certified Radiologist. This report was verified electronically.
--- NOTE | 2017-01-30 12:41 | RSPPFT ---
DATE OF PROCEDURE: 01/24/17 COMMENTS: Spirometry with FVC of 1.8, FEV1 of 1.4, FEV1/FVC ratio at 80%. Lung volumes were not performed. Post-bronchodilator study reveal a non-significant response. Room air arterial blood gases show pH of 7.33, PCO2 of 45, PO2 of 63. IMPRESSION: 1. Normal spirometry. 2. No evidence of airways obstruction. 3. Mild hypercarbia and room air hypoxemia.
== END ==
LOC: HRSP 08:56
PROVIDERS: ATTEND Internal Medicine Sleep Medicine
DX: R06.89 Other abnormalities of breathing (principal)
CPT/HCPCS: 36600; 71020; 82805; 94060

== ENCOUNTER 2017-06-08 17:42 | Emergency (ER) | payer MEDICAID ==
[~2017-06-08] VITALS: Ht 139.7 cm; Wt 102.2 kg
[~2017-06-08 17:42] MED LIST changes: -TOPA25TA8 PO; +TOPI25 PO
[2017-06-08 17:49] VITALS: BP 141/85; PULSE 104; RESP 22; TEMP 98.5
[2017-06-08 17:52] VITALS: O2SAT 96
[2017-06-08 18:45] VITALS: BP 145/78; PULSE 98; RESP 18; TEMP 99.5; O2SAT 96
[2017-06-08] MEDS ORDERED: CLINDAMYCIN INJ 900 MG in SODIUM CHLORIDE 0.9% INJ 100 ML IV ONE (18:45)
--- NOTE | 2017-06-08 18:49 | PD ---
HPI Chief Complaint: Skin Problem Time Seen by Provider: 18:42 Travel History International Travel<30 days: No Contact w/Intl Traveler<30days: No Traveled to known affect area: No History of Present Illness HPI STARTED A PIMPLE ON HER BACK BUT OVER THE LAST DAY OR SO, NOW REDNESS TO LEFT BACK AREA, NO ALLEVIATING/AGGRAVATING FACTORS.... NO ASSOC FACTORS SUCH FEVER/N/V/D/CP/ABDPAIN PCP ALVA ALL: SEE ABOVE PMHX: MRSA, DOWN'S SYNDROME, RESTRICTIVE LUNG DZ ON 2L NC OXYGEN, SLEEP APNEA, PFSH Past Medical History Heart Rhythm Problems: Yes (MITRAL VALVE PROLAPSE) Cardiac Catheterization: Yes (1984) Cardiovascular Problems: Yes High Cholesterol: No Chest Pain: Yes Congestive Heart Failure: Yes Developmental Delay: Yes (DOWNS SYNDROME) Diabetes: No Diminished Hearing: No Gastrointestinal Disorders: Yes (DYSPHAGIA, ABDOMINAL PAIN) GERD: Yes Genitourinary: No Headaches: Yes Insomnia: Yes Musculoskeletal: Yes (BAD KNEES) Neurologic: Yes (DOWN SYNDRONE,SEIZURES) Psychiatric: No Reproductive: Yes (ENDOMETRIOSIS, CYST ON OVARY) Respiratory: Yes Immunizations Current: Yes Pneumonia: Yes (PLEURISY) Seizures: Yes Sleep Apnea: Yes (O2 3L/NC AT NIGHT PRN) Thyroid Disease: Yes ?: Not : 0 Past Surgical History Body Medical Devices: TUBE IN LEFT EAR, BILAT PROSTHETIC EAR DRUMS Cardiac Surgery: Yes (asd repair) Ear Surgery: Yes (tympanic mastoidectomy, myringotomy x19) Oral Surgery: Yes (TONSILS) Tonsillectomy: Yes Tympanostomy Tube: Yes (tympanic surgery) Other Surgery: Yes Social History Alcohol Use: No Tobacco Use: No Substance Use: No Allergies-Medications (Allergen,Severity, Reaction): Coded Allergies: pineapple (Unverified Allergy, Severe, "Stops breathing", 06/08/17) meperidine (Unverified Adverse Reaction, Severe, Anxiety, 06/08/17) *MDRO Multi-Drug Resistant Organism (Verified Adverse Reaction, Unknown, MRSA, 06/08/17) MRSA (abdomen wound) - 12/12/16 Reported Meds & Prescriptions Reported Meds & Active Scripts Active Oxygen (O2) (Miscellaneous Medication) Inha 2 Liter ISABELLA.CANULA CONTINUOUS Oxygen Concentrator Portable Gaseous 2 L/min via Nasal Canula Continuous For 99 months Ventolin Hfa 18 GM Inh (Albuterol Sulfate) 90 Mcg/Act Aer 2 Puff INH Q4H PRN Reported Coconut Oil 1,000 Mg Cap Topamax (Topiramate) 25 Mg Tab 100 Mg PO BID Fish Oil + D3 (Fish Oil-Cholecalciferol) 1,200-1,000 Mg-Unit Cap 1 Cap PO DAILY Protonix (Pantoprazole Sodium) 40 Mg Tab 40 Mg PO DAILY Levothyroxine (Levothyroxine Sodium) 150 Mcg Tab 150 Mcg PO DAILY Levetiracetam 500 Mg Tab 500 Mg PO BID Cetirizine (Cetirizine HCl) 10 Mg Chew 10 Mg CHEW DAILY Review of Systems Except as stated in HPI: all other systems reviewed are Neg General / Constitutional: No: Fever Eyes: No: Visual changes HENT: No: Headaches Cardiovascular: No: Chest Pain or Discomfort Respiratory: No: Shortness of Breath Gastrointestinal: No: Abdominal Pain Genitourinary: No: Dysuria Musculoskeletal: No: Pain Skin: Positive Rash Neurologic: No: Weakness Psychiatric: No: Depression Endocrine: No: Polydipsia Hematologic/Lymphatic: No: Easy Bruising Physical Exam Narrative GENERAL: DOWN FACIES, NO E/O DISTRESS SKIN: Warm and dry. ERYTHEMATOUS AREA 7X3CM AREA, NO FLUCTUANCE, NO STREAKING, INDURATED MIDDLE OF CELLULITIC AREA HEAD: Atraumatic. Normocephalic. EYES: Pupils equal and round. No scleral icterus. No injection or drainage. ENT: No nasal bleeding or discharge. Mucous membranes pink and moist. NECK: Trachea midline. No JVD. CARDIOVASCULAR: Regular rate and rhythm. RESPIRATORY: No accessory muscle use. Clear to auscultation. Breath sounds equal bilaterally. GASTROINTESTINAL: Abdomen soft, non-tender, nondistended. Hepatic and splenic margins not palpable. MUSCULOSKELETAL: Extremities without clubbing, cyanosis, or edema. No obvious deformities. NEUROLOGICAL: Awake and alert. No obvious cranial nerve deficits. Motor grossly within normal limits. Five out of 5 muscle strength in the arms and legs. Normal speech. PSYCHIATRIC: Appropriate mood and affect; insight and judgment normal. Data Data Last Documented VS Vital Signs Date Time Temp Pulse Resp B/P (MAP) Pulse Ox O2 Delivery O2 Flow Rate FiO2 06/08/17 18:54 18 06/08/17 18:45 99.5 98 145/78 (100) 96 Nasal Cannula 2.00 Orders Orders Complete Blood Count With Diff (06/08/17 18:42) Basic Metabolic Panel (Bmp) (06/08/17 18:42) Blood Culture (06/08/17 18:42) Iv Access Insert/Monitor (06/08/17 18:42) Clindamycin Inj (Cleocin Inj) (06/08/17 18:45) Labs Laboratory Tests Test 06/08/17 19:10 06/08/17 19:35 White Blood Count 10.1 TH/MM3 Red Blood Count 3.96 MIL/MM3 Hemoglobin 11.4 GM/DL Hematocrit 34.1 % Mean Corpuscular Volume 86.1 FL Mean Corpuscular Hemoglobin 28.8 PG Mean Corpuscular Hemoglobin Concent 33.4 % Red Cell Distribution Width 14.9 % Platelet Count 227 TH/MM3 Mean Platelet Volume 7.7 FL Neutrophils (%) (Auto) 83.4 % Lymphocytes (%) (Auto) 9.0 % Monocytes (%) (Auto) 6.2 % Eosinophils (%) (Auto) 0.2 % Basophils (%) (Auto) 1.2 % Neutrophils # (Auto) 8.4 TH/MM3 Lymphocytes # (Auto) 0.9 TH/MM3 Monocytes # (Auto) 0.6 TH/MM3 Eosinophils # (Auto) 0.0 TH/MM3 Basophils # (Auto) 0.1 TH/MM3 CBC Comment DIFF FINAL Differential Comment Blood Urea Nitrogen 13 MG/DL Creatinine 0.94 MG/DL Random Glucose 107 MG/DL Calcium Level 8.0 MG/DL Sodium Level 137 MEQ/L Potassium Level 3.5 MEQ/L Chloride Level 103 MEQ/L Carbon Dioxide Level 28.4 MEQ/L Anion Gap 6 MEQ/L Estimat Glomerular Filtration Rate 68 ML/MIN [facility] Medical Decision Making Medical Screen Exam Complete: Yes Emergency Medical Condition: Yes Medical Record Reviewed: Yes Differential Diagnosis CELLULITIS V BACTEREMIA V ABSCESS Diagnosis Primary Impression: Cellulitis Qualified Codes: L03.312 - Cellulitis of back [any part except buttock] Patient Instructions: Cellulitis (ED), General Instructions Scripts Sulfamethoxazole-Trimethoprim (Bactrim DS) 800-160 Mg Tab 1 TAB PO BID for Infection, #20 TAB 0 Refills Prov: Kade Zamarripa MD 06/08/17 Disposition: 01 DISCHARGE HOME Condition: Stable Kade Zamarripa MD Jun 08, 2017 18:49
[2017-06-08] MEDS ORDERED: COCO1000 (19:09)
[2017-06-08 19:33] LABS: AUTOMATED NEUTROPHIL # 8.4 TH/MM3 (1.8-7.7); BASOPHIL # 0.1 TH/MM3 (0-0.2); BASOPHIL % 1.2 % (0.0-2.0); EOSINOPHIL % 0.2 % (0.0-4.0); HEMATOCRIT 34.1 % (35.0-46.0); HEMO FLAGS DIFF FINAL; LYMPHOCYTE # 0.9 TH/MM3 (1.0-4.8); MEAN CELL VOLUME 86.1 FL (80.0-100.0); MEAN CORPUSCULAR HEMOGLOBIN 28.8 PG (27.0-34.0); MEAN CORPUSCULAR HGB CONC 33.4 % (32.0-36.0); MONO % 6.2 % (0.0-8.0); NEUT % 83.4 % (16.0-70.0); PLATELET COUNT 227 TH/MM3 (150-450); RED BLOOD COUNT 3.96 MIL/MM3 (4.00-5.30); RED CELL DISTRIBUTION WIDTH 14.9 % (11.6-17.2); WHITE BLOOD COUNT 10.1 TH/MM3 (4.0-11.0)
[2017-06-08 20:00] LABS: POTASSIUM 3.5 MEQ/L (3.5-5.1)
[2017-06-08 20:03] LABS: BICARBONATE 28.4 MEQ/L (21.0-32.0)
[2017-06-08] MEDS ORDERED: BACT800T5 PO (20:21)
[2017-06-08 21:02] VITALS: BP 124/64
== END 2017-06-08 21:04 | disposition home or self-care (01) ==
LOC: PHED 17:42
DX: L03.312 Cellulitis of back [any part except buttock and flank] (principal)
CPT/HCPCS: 80048; 85025; 87040; 96365